=== PATIENT | male | born 1970 | race Caucasian/White ===

== ENCOUNTER 2016-12-21 10:13 | Emergency (ER) | payer OTHER ==
[~2016-12-21] VITALS: Ht 170.2 cm; Wt 163.5 kg
[2016-12-21 10:16] VITALS: Ht 170.2 cm; Wt 163.5 kg
--- NOTE | 2016-12-21 11:37 | RADRPT ---
PROCEDURE: US Lower extremity Venous. CLINICAL INDICATION: Pain and swelling TECHNIQUE: Multiple sonographic images of the left lower extremity deep venous system was obtained utilizing grayscale, color-flow, compressive sonography and doppler imaging with augmentation. The images were reviewed on a PACS workstation. COMPARISON: None. FINDINGS: There is normal compressibility and flow within the left common femoral, deep femoral, superficial f emoral and popliteal veins. Normal respiratory variation and augmentation is seen. There is normal color flow and compressibility of left posterior tibial and peroneal veins IMPRESSION: No sonographic evidence for left lower extremity deep venous thrombosis. RPTAT: HH .Alex Gayle MD, MD Date Time Electronically viewed and signed by .Alex Gayle MD, on 12/21/2016 11:36 .W/
[2016-12-21] MEDS ORDERED: SULF1TAB31 PO (11:50)
--- NOTE | 2016-12-21 11:55 | ERD ---
ER Documentation Chief Complaint Date/Time DATE: 12/21/16 TIME: 11:53 Chief Complaint SENT BY PMD FOR EVAL OF LEFT LEG SWELLING R/O DVT HPI 46-year-old diabetic male presents with left lower extremity swelling that he has had for 3 weeks. He was seen by his primary care doctor Dr. Tony zaman and was sent here to rule out DVT. He denies any recent travel, chest pain, shortness of breath, cough. No fever. No palpitations. ROS All systems reviewed and are negative except as per history of present illness. Medications Home Meds Active Scripts Sulfamethoxazole/Trimethoprim* (Bactrim Ds* Tablet) 1 Each Tablet, 1 TAB PO BID for 10 Days, TAB Prov:OLIVERIO MOYA PA-C 12/21/16 Sulfamethoxazole/Trimethoprim* (Bactrim Ds* Tablet) 1 Each Tablet, 1 TAB PO BID , #10 TAB Prov:OLIVERIO MOYA PA-C 12/21/16 Allergies Allergies: Coded Allergies: Penicillins (Verified Allergy, Unknown, 12/21/16) acetaminophen (Verified Allergy, Unknown, 12/21/16) ciprofloxacin (Verified Allergy, Unknown, 12/21/16) metronidazole (Verified Allergy, Unknown, 12/21/16) oxycodone (Verified Allergy, Unknown, 12/21/16) vancomycin (Verified Allergy, Unknown, 12/21/16) PMhx/Soc History of Surgery: Yes (LT SHOULDER , BACK , RT FOOT ALL 5 TOE AMP , LT 2ND TOE AMP ) Anesthesia Reaction: No Hx Neurological Disorder: No Hx Respiratory Disorders: No Hx Cardiac Disorders: Yes (HTN , HIGH CHOLESTEROL ) Hx Miscellaneous Medical Probl: Yes (DM ) Hx Alcohol Use: No Hx Substance Use: No Hx Tobacco Use: No Smoking Status: Never smoker FmHx Family History: diabetes Physical Exam Vitals Vital Signs Date Time Temp Pulse Resp B/P Pulse Ox O2 Delivery O2 Flow Rate FiO2 12/21/16 10:16 97.9 100 18 169/90 100 Physical Exam General: well developed, well nourished, alert, nontoxic, no distress Head: normocephalic, atraumatic Neck: Supple, nontender, no lymphadenopathy, no midline tenderness Respiratory: Clear to auscaultation bilaterally, speaks in full sentences, no use of accesory muscles or labored breathing, no rales, ronchi, or wheezing Cardiovascular: RRR, No murmurs Back: no midline tenderness, no step offs or bony abnormalities, sensation to light touch in tact Extremities: Left anterior posterior erythema and edema below the knee, with some induration behind the calf, sensation to light touch intact, ambulatory, no bony abnormality Procedures/MDM Patient has left lower extremity swelling and edema and is sent here to rule out DVT. Patient's blood pressure was elevated (>120/80) but appears stable without evidence of hypertension emergency or urgency. The patient was counseled about the risks of hypertension and urged to pursue outpatient monitoring and therapy within a week with their primary care physician. Pulse rate 100. DVT venous duplex ultrasound was negative for DVT. This is most likely therefore cellulitis and he will be treated on Bactrim. His Accu-Chek that he took at home was 218. Reviewed case with Dr. roca and he agrees with the plan. Patient was given copy of results we can follow with primary care. Recommended this patient follow up with her primary care doctor within 48 hours or return to the emergency room for any worsening of symptoms. However this time I do believe there is suitable for outpatient management. I answered all their questions and they agreed with the plan and were discharged home. Departure Diagnosis: Primary Impression: Cellulitis Condition: Stable Patient Instructions: Cellulitis Additional Instructions: Call your primary care doctor TOMORROW for an appointment during the next 1-2 days.See the doctor sooner or return here if your condition worsens before your appointment time. OLIVERIO MOYA PA-C Dec 21, 2016 11:55
== END 2016-12-21 12:11 | disposition home or self-care (01) ==
LOC: FTE 10:13
DX: L03.116 Cellulitis of left lower limb (principal); I10 Essential (primary) hypertension; E11.9 Type 2 diabetes mellitus without complications
CPT/HCPCS: 93971

== ENCOUNTER 2016-12-26 08:39 | Inpatient (IN) | payer OTHER ==
[~2016-12-26] VITALS: Ht 200.7 cm; Wt 164.4 kg
[~2016-12-26 08:39] MED LIST: SULF1TAB31 PO
[2016-12-26] MEDS ORDERED: FUROSEMIDE 40 MG INJ IV ONE (10:00)
[2016-12-26] MEDS ORDERED: IMIPENEM-CILAST 500MG IV (PMX) 100 ML IVPB ONE (10:00)
[2016-12-26 10:01] LABS: ADD SCAN DIFF NO
[2016-12-26 10:04] LABS: BASOPHILS % 0.4 % (0.0-2.0); EOSINOPHILS # 0.1 10^3/ul (0.0-0.5); EOSINOPHILS % 1.1 % (0.0-7.0); HEMOGLOBIN 13.4 g/dl (14.0-18.0); LYMPHOCYTES # 1.8 10^3/ul (0.8-2.9); MEAN CORPUSCULAR HEMOGLOBIN 26.1 pg (29.0-33.0); MEAN CORPUSCULAR HGB CONC 31.2 g/dl (32.0-37.0); MEAN CORPUSCULAR VOLUME 83.8 fl (82.0-101.0); MONOCYTE # 0.9 10^3/ul (0.3-0.9); MONOCYTES % 10.3 % (0.0-11.0); NEUTROPHIL # 5.4 10^3/ul (1.6-7.5); NEUTROPHILS % 65.6 % (39.0-77.0); PLATELET COUNT 277 10^3/UL (140-415); RED BLOOD COUNT 5.13 10^6/ul (4.70-6.10); RED CELL DISTRIBUTION WIDTH 14.3 % (11.5-14.5); WHITE BLOOD COUNT 8.3 10^3/ul (4.8-10.8)
[2016-12-26 10:09] LABS: ALBUMIN 4.5 g/dl (3.3-4.9)
[2016-12-26 10:10] LABS: POTASSIUM 4.6 mmol/L (3.5-5.1)
[2016-12-26 10:12] LABS: BILIRUBIN,INDIRECT 0.4 mg/dl (0-1.1); BILIRUBIN,TOTAL 0.4 mg/dl (0.2-1.3); CREATININE 1.1 mg/dl (0.61-1.24)
[2016-12-26 10:13] LABS: ALBUMIN/GLOBULIN RATIO 1.36; CALCIUM 9.7 mg/dl (8.4-10.2); TOTAL PROTEIN 7.8 g/dl (6.1-8.1)
--- NOTE | 2016-12-26 10:26 | ERA ---
ER Documentation Chief Complaint Date/Time DATE: 12/26/16 TIME: 10:24 Chief Complaint Complains of leg swelling with redness HPI 46-year-old man complains of continued bilateral lower extremity swelling and worsening redness to the left lower leg despite using oral antibiotics. He was recently diagnosed with left lower extremity cellulitis and diabetic foot ulcer and has been using trimethoprim sulfamethoxazole orally as an outpatient 3 days without relief. He was also recently ruled out for deep vein thrombosis in the left lower extremity. Patient denies fevers or chills, no vomiting or diarrhea, no chest pain or shortness of breath. ROS All systems reviewed and are negative except as per history of present illness. Medications Home Meds Active Scripts Sulfamethoxazole/Trimethoprim* (Bactrim Ds* Tablet) 1 Each Tablet, 1 TAB PO BID for 10 Days, TAB Prov:OLIVERIO MOYA PA-C 12/21/16 Sulfamethoxazole/Trimethoprim* (Bactrim Ds* Tablet) 1 Each Tablet, 1 TAB PO BID , #10 TAB Prov:OLIVERIO MOYA PA-C 12/21/16 Reported Medications Insulin Regular, Human (Humulin R) 100 Unit/1 Ml Vial, 8 UNIT IJ BID WITH MEALS , VIAL 12/26/16 Insulin Aspart* (Novolog Insulin Pen*) 100 Unit/Ml Soln, 45 UNIT SC AC MEALS AND BEDTIME, EA 12/26/16 Baclofen* (Baclofen*) 10 Mg Tablet, 10 MG PO Q8, TAB 12/26/16 Hydrocodone/Acetaminophen (Iselin 10-325 Tablet) 1 Each Tablet, 1 TAB PO Q6, TAB 12/26/16 Morphine Sulfate* (Ms Contin*) 30 Mg Tablet.sa, 30 MG PO Q8, TAB.SA 12/26/16 Temazepam* (Temazepam*) 30 Mg Capsule, 30 MG PO HS Y for INSOMNIA, CAP 12/26/16 Amlodipine Besylate/Benazepril (Amlodipine-Benazepril 10-20 mg) 1 Each Capsule, 1 CAP PO DAILY, CAP 12/26/16 Furosemide* (Furosemide*) 40 Mg Tablet, 40 MG PO DAILY, TAB 12/26/16 Hydralazine Hcl* (Hydralazine Hcl*) 50 Mg Tab, 50 MG PO DAILY, #60 TAB 12/26/16 Gabapentin* (Gabapentin*) 600 Mg Tablet, 600 MG PO TID, #90 TAB 12/26/16 Metformin Hcl* (Metformin Hcl*) 1,000 Mg Tablet, 1000 MG PO WITH BREAKFAST DINNE , #30 TAB 12/26/16 Simvastatin* (Zocor*) 40 Mg Tablet, 40 MG PO QHS, #30 TAB 12/26/16 Cinnamon Bark (Cinnamon) 500 Mg Capsule, 2000 MG PO DAILY, CAP 12/26/16 Allergies Allergies: Coded Allergies: Penicillins (Verified Allergy, Unknown, 12/21/16) acetaminophen (Verified Allergy, Unknown, 12/21/16) ciprofloxacin (Verified Allergy, Unknown, 12/21/16) metronidazole (Verified Allergy, Unknown, 12/21/16) oxycodone (Verified Allergy, Unknown, 12/21/16) vancomycin (Verified Allergy, Unknown, 12/21/16) PMhx/Soc Obesity, hypertension, diabetes mellitus, hypercholesterolemia, previous toe amputation of the left foot History of Surgery: Yes (LT SHOULDER , BACK , RT FOOT ALL 5 TOE AMP , LT 2ND TOE AMP ) Anesthesia Reaction: No Hx Neurological Disorder: No Hx Respiratory Disorders: No Hx Cardiac Disorders: Yes (HTN , HIGH CHOLESTEROL ) Hx Miscellaneous Medical Probl: Yes (DM ) Hx Alcohol Use: No Hx Substance Use: No Hx Tobacco Use: No FmHx Family History: No diabetes Physical Exam Vitals Vital Signs Date Time Temp Pulse Resp B/P Pulse Ox O2 Delivery O2 Flow Rate FiO2 12/26/16 08:48 97.5 95 20 133/72 95 Physical Exam GENERAL: Well-developed, well-nourished, well-hydrated, in no apparent distress , looks nontoxic in appearance HEENT: Moist mucous membranes, pink conjunctiva, no cervical spine tenderness or step-off deformities, no goiter, no jaundice or icterus, extraocular movements intact without pain. No submandibular induration, and no pharyngeal erythema NEURO: Alert and oriented 3, cranial nerves II through XII intact bilaterally, pupils equal round reactive to light, no focal deficits or facial asymmetry, sensation intact distally Strength 5/5 in upper and lower extremities bilaterally CARDIAC: Regular rate and rhythm, no murmurs rubs or gallops LUNGS: Clear bilaterally no wheezing crackles or stridor ABDOMEN: Soft nontender, no guarding, no rigidity, no rebound, no psoas sign no obturator sign. Normoactive bowel sounds SKIN: Warm and dry to touch, skin erythema and stasis dermatitis changes to the lower extremities bilaterally with erythema and skin induration to the left lower leg, no target lesions, and without ulcers EXTREMITIES: No clubbing cyanosis, 3+ pitting edema in the lower extremities bilaterally with chronic stasis dermatitis changes and a superficial ulceration the anterior left leg, calves are bilaterally symmetrical, no Homans sign, no popliteal cord sign. Distal pulses equal and bilateral PSYCH: Normal affect without agitation or irritability Result Diagram: 12/26/1645 12/26/16 0945 Results 24 hrs Laboratory Tests Test 12/26/16 09:45 White Blood Count 8.310^3/ul Red Blood Count 5.1310^6/ul Hemoglobin 13.4g/dl Hematocrit 43.0% Mean Corpuscular Volume 83.8fl Mean Corpuscular Hemoglobin 26.1pg Mean Corpuscular Hemoglobin Concent 31.2g/dl Red Cell Distribution Width 14.3% Platelet Count 66530^3/UL Mean Platelet Volume 10.0fl Neutrophils % 65.6% Lymphocytes % 22.0% Monocytes % 10.3% Eosinophils % 1.1% Basophils % 0.4% Nucleated Red Blood Cells % 0.0/100WBC Neutrophils # 5.410^3/ul Lymphocytes # 1.810^3/ul Monocytes # 0.910^3/ul Eosinophils # 0.110^3/ul Basophils # 0.010^3/ul Nucleated Red Blood Cells # 0.010^3/ul Sodium Level 142mmol/L Potassium Level 4.6mmol/L Chloride Level 103mmol/L Carbon Dioxide Level 25mmol/L Anion Gap 19 Blood Urea Nitrogen 21mg/dl Creatinine 1.10mg/dl Glucose Level 229mg/dl Calcium Level 9.7mg/dl Total Bilirubin 0.4mg/dl Direct Bilirubin 0.00mg/dl Indirect Bilirubin 0.4mg/dl Aspartate Amino Transf (AST/SGOT) 39IU/L Alanine Aminotransferase (ALT/SGPT) 58IU/L Alkaline Phosphatase 104IU/L Total Protein 7.8g/dl Albumin 4.5g/dl Globulin 3.30g/dl Albumin/Globulin Ratio 1.36 Lipase 16U/L Current Medications Medications (Trade) Dose Ordered Sig/Indira Route PRN Reason Start Time Stop Time Status Last Admin Dose Admin Furosemide 60 mg 60 mg ONCE ONCE IV 12/26/16 10:00 12/26/16 10:01 DC 12/26/16 10:21 Imipenem/ Cilastatin Sodium 100 ml @ 100 mls/hr ONCE ONCE IVPB 12/26/16 10:00 12/26/16 11:08 DC 12/26/16 12:04 Clindamycin HCl/ Dextrose (Cleocin 900 Mg/ D5W (Pmx)) 50 ml @ 50 mls/hr ONCE IVPB 12/26/16 10:30 12/26/16 11:29 DC 12/26/16 10:41 Procedures/MDM IV line was established patient was placed on cardiac/vascular sonographer rhythm strip revealed a sinus rhythm at about 80 bpm with upright P and T waves. Patient was afebrile. CBC was unremarkable, electrolytes revealed a BUN/creatinine of 21/1.1 hyperglycemia 229, liver function tests are normal, troponin was negative. Patient has been on multiple antibiotics already and has multiple antibiotic allergies, and is seems symptoms are getting worse so I treated him here with imipenem 500 mg IV and clindamycin 900 mg IV. Patient also received furosemide 60 mg IV for peripheral edema. Patient will be admitted to [facility] for continued medical management and IV antibiotics. Departure Diagnosis: Primary Impression: Cellulitis Qualified Code: L03.116 - Cellulitis of left lower extremity Additional Impressions: Diabetic foot ulcer Qualified Code: E11.621 - Diabetic ulcer of left midfoot associated with type 2 diabetes mellitus, limited to breakdown of skin Peripheral edema Stasis dermatitis of both legs Condition: JOANNA Steele MD December 26, 2016 10:26
[2016-12-26] MEDS ORDERED: CLINDAMYCIN 900 MG/D5W (PMX) 50 ML IVPB SCH (10:30)
[2016-12-26] MEDS ORDERED: INSU100V3 IJ (11:19)
[2016-12-26] MEDS ORDERED: BACL10TA PO (11:19)
[2016-12-26] MEDS ORDERED: FURO40TA4 PO (11:19)
[2016-12-26] MEDS ORDERED: SIMV40TA2 PO (11:19)
[2016-12-26] MEDS ORDERED: CINN500C9 PO (11:19)
[2016-12-26] MEDS ORDERED: TEMA30CA PO (11:19)
[2016-12-26] MEDS ORDERED: MORP30TA89 PO (11:19)
[2016-12-26] MEDS ORDERED: AMLO1CAP12 PO (11:19)
[2016-12-26] MEDS ORDERED: HYDR-902 PO (11:19)
[2016-12-26] MEDS ORDERED: HYDR-3672 PO (11:19)
[2016-12-26] MEDS ORDERED: NOVO3I SC (11:19)
[2016-12-26] MEDS ORDERED: METF1000 PO (11:19)
[2016-12-26] MEDS ORDERED: GABA-526 PO (11:19)
[2016-12-26] MEDS ORDERED: CINNAMON BARK 2000 MG PO SCH (13:30)
[2016-12-26] MEDS ORDERED: ZOLPIDEM 5 MG TAB PO PRN (13:30)
--- NOTE | 2016-12-26 13:31 | HP ---
Date/Time of Note Date/Time of Note DATE: 12/26/16 TIME: 13:06 Assessment/Plan VTE Prophylaxis VTE Prophylaxis Intervention: LMWH Assessment/Plan Assessment/Plan 1. Left lower extremity cellulitis, meropenem, keep leg elevated 2. Left foot diabetic ulcer, podiatry consult 3. DM, on insulin 4. HTN, controlled 5. Dyslipidemia, on statin 6. Diabetic neuropathy, on neurontin HPI/ROS Admit Date/Time Admit Date/Time Hx of Present Illness 46-year-old man with DM, HTN, and dyslipidemia comes in with gradually worsening left lower leg swelling, redness and left foot wound with drainage, that he was started on bactrim 3 days ago wihtout improvement. No fever or chill..Patient had history of right foot infection that he had amputation in the past. ROS Constitutional: no complaints, No chills, No diaphoresis, No disoriented, No fatigue, No febrile, No improved, No nausea, No other, No poor po, No weight change Eyes: no complaints, No discharge, No other, No pain, No redness, No visual change ENT: no complaints, No bleeding, No congestion, No discharge, No dysphagia, No other, No pain, No sore throat Respiratory: no complaints, No cough, No other, No pain, No pleuritic pain, No shortness of breath, No sputum, No wheezing Cardiovascular: no complaints, No chest pain, No edema, No lightheadedness, No orthopenea, No other, No palpitations, No paroxysmal nocturnal dyspnea Gastrointestinal: no complaints, No blood, No constipation, No decreased appetite, No diarrhea, No flatus, No nausea, No other, No pain, No passing stool, No vomiting Genitourinary: no complaints, No bleeding, No discharge, No dysuria, No flank pain, No hematuria, No other Neurologic: no complaints, No confusion, No dizziness, No focal-weakness, No headache, No other, No seizure, No syncope Endocrine: no complaints, No dry skin, No other, No polydypsia, No polyuria, No temp intolerance, No weight change PMH/Family/Social Past Medical History Medical History: diabetes, high cholesterol, hypertension Past Surgical History Past Surgical Hx: other (right foot amputation) Social History Alcohol Use: none Smoking Status: Former smoker Drug Use: none Exam/Review of Systems Vital Signs Vitals Vital Signs Date Time Temp Pulse Resp B/P Pulse Ox O2 Delivery O2 Flow Rate FiO2 12/26/16 08:48 97.5 95 20 133/72 95 Exam Constitutional: alert, oriented, well developed Psych: nl mood/affect, no complaints Head: atraumatic, normocephalic Eyes: EOMI, nl conjunctiva, nl lids ENMT: nl external ears & nose, nl lips & teeth, nl nasal mucosa & septum Neck: non-tender, supple Respiratory: clear to auscultation, normal air movement, No congested cough, No crackles/rales, No diminished breath sounds, No intercostal retraction, No labored breathing, No other, No respirations, No tactile fremitus, No wheezing Cardiovascular: nl pulses, regular rate and rhythm, No S3, No S4, No bruits, No diastolic murmur, No edema, No gallop, No irregular rhythm, No jugular venous distention (JVD), No murmurs/extra sounds, No other, No rub, No systolic murmur Gastrointestinal: nl liver, spleen, non-tender, soft, No ascites, No bowel sounds, No distended, No firm, No hepatomegaly, No mass , No other, No rebound or guarding, No splenomegaly, No surgical scars, No tender Extremities: other (left lower extremity redness, swelling with skin tears below the knee. there is a wound on left foot with some drainage) Neurological: COMPLIANCE PROGRAM MANAGER II-XII intact, nl mental status, nl speech, nl strength Skin: nl turgor Lymph: nl lymph nodes Labs Result Diagram: 12/26/16 0945 12/26/16 0945 CRUZ THOMAS MD December 26, 2016 13:17
[2016-12-26] MEDS: MEROPENEM 1 GM/100 ML (PMX) 100 ML IVPB SCH ×2 (14:00→23:34)
[2016-12-26] MEDS ORDERED: GLUCOSE GEL 15 GRAM TUBE PO PRN ×2 (14:00)
[2016-12-26] MEDS ORDERED: GLUCAGON 1 MG INJ IM PRN (14:00)
[2016-12-26] MEDS: AMLODIPINE 10 MG TAB PO SCH (14:00)
[2016-12-26] MEDS: BENAZEPRIL 20 MG TAB PO SCH (14:00)
[2016-12-26] MEDS: morphine (ER) 30 MG TAB PO SCH ×2 (14:00→23:33)
[2016-12-26] MEDS: FUROSEMIDE 40 MG TAB PO SCH (14:00)
[2016-12-26] MEDS ORDERED: DEXTROSE 50% 50 ML SYRINGE IV PRN ×2 (14:00)
[2016-12-26] MEDS ORDERED: GLUCOSE GEL 15 GRAM TUBE BUCCAL PRN (14:00)
[2016-12-26] MEDS: HYDROCODONE/APAP (10/325) TAB PO SCH ×2 (15:42→22:13)
[2016-12-26] MEDS: BACLOFEN 10 MG TAB PO SCH ×2 (16:53→23:33)
[2016-12-26] MEDS ORDERED: INSULIN ASPART [NOVOLOG] 3 ML PEN SC SCH (17:30)
[2016-12-26] MEDS: ENOXAPARIN 40 MG/0.4 ML SYG SC SCH (17:38)
[2016-12-26 18:00] VITALS: Ht 200.7 cm; Wt 164.4 kg
[2016-12-26 19:13] VITALS: TEMP 98.6
[2016-12-26 20:25] VITALS: BP 141/73; RESP 18
[2016-12-26] MEDS ORDERED: INSULIN GLARGINE [LANtus] 3 ML PEN SC SCH (21:00)
[2016-12-26] MEDS: metFORMIN 500 MG TAB PO SCH (22:13)
[2016-12-26] MEDS: GABAPENTIN 300 MG CAP PO SCH (22:13)
[2016-12-26] MEDS: ATORVASTATIN 20 MG TAB PO SCH (22:13)
[2016-12-26] MEDS: INSULIN ASPART [NOVOLOG] 3 ML PEN SC SCH (22:24)
[2016-12-27] MEDS: HYDROCODONE/APAP (10/325) TAB PO SCH ×5 (01:37→23:50)
[2016-12-27] MEDS: BACLOFEN 10 MG TAB PO SCH ×3 (05:56→21:51)
[2016-12-27] MEDS: morphine (ER) 30 MG TAB PO SCH ×3 (05:56→21:51)
[2016-12-27 07:58] VITALS: BP 117/68; RESP 16
[2016-12-27] MEDS: MEROPENEM 1 GM/100 ML (PMX) 100 ML IVPB SCH ×3 (08:12→21:51)
[2016-12-27] MEDS: GABAPENTIN 300 MG CAP PO SCH ×3 (08:35→21:08)
[2016-12-27] MEDS: BENAZEPRIL 20 MG TAB PO SCH (08:36)
[2016-12-27] MEDS: metFORMIN 500 MG TAB PO SCH ×2 (08:36→17:16)
[2016-12-27] MEDS: AMLODIPINE 10 MG TAB PO SCH (08:36)
[2016-12-27] MEDS: FUROSEMIDE 40 MG TAB PO SCH (08:37)
[2016-12-27] MEDS: ENOXAPARIN 40 MG/0.4 ML SYG SC SCH (08:39)
[2016-12-27] MEDS: INSULIN ASPART [NOVOLOG] 3 ML PEN SC SCH ×5 (08:40→21:16)
--- NOTE | 2016-12-27 14:17 | PN ---
Date/Time of Note Date/Time of Note DATE: 12/27/16 TIME: 14:15 Assessment/Plan VTE Prophylaxis VTE Prophylaxis Intervention: LMWH Lines/Catheters IV Catheter Type (from Nrsg): Saline Lock Assessment/Plan Assessment/Plan 1. Left lower extremity cellulitis, meropenem, keep leg elevated 2. Left foot diabetic ulcer, podiatry consult Dr. Romero 3. DM, on insulin 4. HTN, controlled 5. Dyslipidemia, on statin 6. Diabetic neuropathy, on neurontin Subjective 24 Hr Interval Summary Free Text/Dictation afebrile Exam/Review of Systems Vital Signs Vitals Vital Signs Date Time Temp Pulse Resp B/P Pulse Ox O2 Delivery O2 Flow Rate FiO2 12/27/16 07:58 98.2 78 16 117/68 99 12/26/16 19:13 Room Air Intake and Output 12/26/16 12/26/16 12/27/16 15:00 23:00 07:00 Intake Total 450 ml Output Total 850 ml 150 ml Balance -850 ml 300 ml Exam Constitutional: alert, oriented, well developed Psych: nl mood/affect, no complaints Head: atraumatic, normocephalic Eyes: EOMI, nl conjunctiva, nl lids ENMT: nl external ears & nose, nl lips & teeth, nl nasal mucosa & septum Neck: non-tender, supple Respiratory: clear to auscultation, normal air movement, No congested cough, No crackles/rales, No diminished breath sounds, No intercostal retraction, No labored breathing, No other, No respirations, No tactile fremitus, No wheezing Cardiovascular: nl pulses, regular rate and rhythm, No S3, No S4, No bruits, No diastolic murmur, No edema, No gallop, No irregular rhythm, No jugular venous distention (JVD), No murmurs/extra sounds, No other, No rub, No systolic murmur Gastrointestinal: nl liver, spleen, non-tender, soft, No ascites, No bowel sounds, No distended, No firm, No hepatomegaly, No mass , No other, No rebound or guarding, No splenomegaly, No surgical scars, No tender Musculoskeletal: nl extremities to inspection Extremities: edema, normal pulses, other, pitting pedal edema (left lower extremity redness/swelling and tenderness with an left foot ulcer), No calf tenderness, No clubbing, No cyanosis, No palpable cord Neurological: EGYPTOLOGIST II-XII intact, nl mental status, nl speech, nl strength Results Result Diagram: 12/26/1645 12/26/16 0945 Results 24 hrs Laboratory Tests Test 12/26/16 17:21 12/26/16 22:16 12/27/16 01:38 12/27/16 08:12 Bedside Glucose 279 H 295 H 298 H 229 H Test 12/27/16 12:21 Bedside Glucose 245 H Medications Medications Current Medications Meropenem (Merrem 1 Gm/100 ml (Pmx)) 100 ml @ 200 mls/hr Q8 IVPB Last administered on 12/27/16 08:12; Admin Dose 200 MLS/HR; Start 12/26/16 at 14:00 Baclofen (Lioresal) 10 mg Q8 PO Last administered on 12/27/16 13:10; Admin Dose 10 MG; Start 12/26/16 at 14:00 Furosemide (Lasix) 40 mg DAILY PO Last administered on 12/27/16 08:37; Admin Dose 40 MG; Start 12/26/16 at 14:00 Gabapentin (Neurontin) 600 mg TID PO Last administered on 12/27/16 13:10; Admin Dose 600 MG; Start 12/26/16 at 21:00 Hydralazine HCl (Apresoline) 50 mg DAILY PO Last administered on 12/27/16 08:36 ; Admin Dose 50 MG; Start 12/26/16 at 14:00 Acetaminophen/ Hydrocodone Bitart ([place] (10/325)) 1 tab Q6 PO Last administered on 12/27/16 13:10; Admin Dose 1 TAB; Start 12/26/16 at 13:30 Morphine Sulfate (Ms Contin (Er)) 30 mg Q8 PO Last administered on 12/27/16 05: 56; Admin Dose 30 MG; Start 12/26/16 at 14:00 Amlodipine Besylate (Norvasc) 10 mg DAILY PO Last administered on 12/27/16 08: 36; Admin Dose 10 MG; Start 12/26/16 at 14:00 Atorvastatin Calcium (Lipitor) 20 mg QHS PO Last administered on 12/26/16 22:13 ; Admin Dose 20 MG; Start 12/26/16 at 21:00 Enoxaparin Sodium (Lovenox) 40 mg DAILY SC Last administered on 12/27/16 08:39 ; Admin Dose 40 MG; Start 12/26/16 at 14:00 Miscellaneous Information 1 ea NOTE XX ; Start 12/26/16 at 14:00 Glucose (Glutose) 15 gm Q15M PRN PO DECREASED GLUCOSE; Start 12/26/16 at 14:00 Glucose (Glutose) 22.5 gm Q15M PRN PO DECREASED GLUCOSE; Start 12/26/16 at 14:00 Dextrose (D50w Syringe) 25 ml Q15M PRN IV DECREASED GLUCOSE; Start 12/26/16 at 14:00 Dextrose (D50w Syringe) 50 ml Q15M PRN IV DECREASED GLUCOSE; Start 12/26/16 at 14:00 Glucagon (Glucagen) 1 mg Q15M PRN IM DECREASED GLUCOSE; Start 12/26/16 at 14:00 Glucose (Glutose) 15 gm Q15M PRN BUCCAL DECREASED GLUCOSE; Start 12/26/16 at 14: 00 Benazepril HCl (Lotensin) 20 mg DAILY PO Last administered on 12/27/16 08:36; Admin Dose 20 MG; Start 12/26/16 at 14:00 Insulin Glargine (Lantus) 45 unit HS SC Last administered on 12/26/16 22:19; Admin Dose 45 UNIT; Start 12/26/16 at 21:00 Ondansetron HCl (Zofran Inj) 4 mg Q4H PRN IV NAUSEA AND/OR VOMITING; Start 12/27 at 13:30 Diagnostic Test (Pha) (Accu-Chek) 1 ea 02 XX ; Start 12/28/16 at 02:00 CRUZ THOMAS MD December 27, 2016 14:17
[2016-12-27] MEDS: ONDANSETRON 4 MG INJ IV PRN ×2 (14:34→21:06)
--- NOTE | 2016-12-27 19:27 | RADRPT ---
PROCEDURE: MR Foot. CLINICAL INDICATION: Soft tissue defect at the left forefoot with cellulitis. TECHNIQUE: Noncontrast MRI of the left forefoot, with axial, sagittal and coronal images. T1-weig hted and STIR sequences were employed. COMPARISON: Plain film examination of the left foot. FINDINGS: Amputation of the second ray at the distal second metaphysis. There is soft tissue swelling over the dorsum of the forefoot. There is a soft tissue defect at the plantar aspect of the forefoot in the region of the head of the third metatarsal. No abnormal T1-we ighted or fluid-sensitive STIR signal is seen to suggest osteomyelitis. No acute fracture, dislocation or marrow replacement process. Increased fluid signal within the interosseous musculature of the forefoot can be seen in associatio n with early neuropathic changes. IMPRESSION: 1. Soft tissue ulceration of the left forefoot near the head of the third metatarsal. 2. No evident abnormal signal to suggest osteomyelitis. 3. Soft tissue swelling over the dorsum of the forefoot. 4. Increased fluid signal within the interosseous musculature of the forefoot can be seen in associ ation with early neuropathic changes. RPTAT: [facility] Physician Annabel Date Time Electronically viewed and signed by Physician Annabel on 12/27/2016 19:27 RS/
[2016-12-27 19:37] VITALS: BP 129/79; RESP 20
[2016-12-27] MEDS: ATORVASTATIN 20 MG TAB PO SCH (21:09)
[2016-12-27] MEDS: INSULIN GLARGINE [LANtus] 3 ML PEN SC SCH (21:15)
[2016-12-28] MEDS: ACCU-CHEK XX SCH (02:00)
[2016-12-28] MEDS: MEROPENEM 1 GM/100 ML (PMX) 100 ML IVPB SCH ×3 (05:51→21:41)
[2016-12-28] MEDS: HYDROCODONE/APAP (10/325) TAB PO SCH ×3 (05:52→17:07)
[2016-12-28] MEDS: morphine (ER) 30 MG TAB PO SCH ×3 (05:52→21:40)
[2016-12-28] MEDS: BACLOFEN 10 MG TAB PO SCH ×3 (05:52→21:40)
[2016-12-28 06:25] LABS: POTASSIUM 4.6 mmol/L (3.5-5.1)
[2016-12-28 06:28] LABS: CREATININE 0.91 mg/dl (0.61-1.24)
[2016-12-28 06:29] LABS: CALCIUM 9.2 mg/dl (8.4-10.2)
[2016-12-28 06:42] LABS: ADD SCAN DIFF NO
[2016-12-28 06:47] LABS: BASOPHILS % 0.4 % (0.0-2.0); EOSINOPHILS # 0.2 10^3/ul (0.0-0.5); EOSINOPHILS % 2.3 % (0.0-7.0); HEMATOCRIT 37.8 % (42.0-52.0); HEMOGLOBIN 12.3 g/dl (14.0-18.0); LYMPHOCYTES # 2.6 10^3/ul (0.8-2.9); LYMPHOCYTES % 35.9 % (15.0-51.0); MEAN CORPUSCULAR HEMOGLOBIN 27.2 pg (29.0-33.0); MEAN CORPUSCULAR HGB CONC 32.5 g/dl (32.0-37.0); MEAN CORPUSCULAR VOLUME 83.4 fl (82.0-101.0); MEAN PLATELET VOLUME 10.4 fl (7.4-10.4); MONOCYTE # 0.8 10^3/ul (0.3-0.9); MONOCYTES % 11.5 % (0.0-11.0); NEUTROPHIL # 3.6 10^3/ul (1.6-7.5); NEUTROPHILS % 49.2 % (39.0-77.0); PLATELET COUNT 257 10^3/UL (140-415); RED BLOOD COUNT 4.53 10^6/ul (4.70-6.10); RED CELL DISTRIBUTION WIDTH 13.7 % (11.5-14.5); WHITE BLOOD COUNT 7.3 10^3/ul (4.8-10.8)
[2016-12-28] MEDS: GABAPENTIN 300 MG CAP PO SCH ×3 (08:12→20:21)
[2016-12-28] MEDS: metFORMIN 500 MG TAB PO SCH ×2 (08:12→17:06)
[2016-12-28] MEDS: INSULIN ASPART [NOVOLOG] 3 ML PEN SC SCH ×7 (08:18→20:24)
[2016-12-28] MEDS: ENOXAPARIN 40 MG/0.4 ML SYG SC SCH (08:20)
[2016-12-28] MEDS: FUROSEMIDE 40 MG TAB PO SCH (08:24)
[2016-12-28] MEDS: BENAZEPRIL 20 MG TAB PO SCH (08:24)
[2016-12-28 08:25] VITALS: BP_SYST 76; PULSE 84
[2016-12-28] MEDS: AMLODIPINE 10 MG TAB PO SCH (08:25)
[2016-12-28] MEDS: ONDANSETRON 4 MG INJ IV PRN ×3 (09:39→22:43)
--- NOTE | 2016-12-28 10:39 | PN ---
Date/Time of Note Date/Time of Note DATE: 12/28/16 TIME: 10:33 Assessment/Plan VTE Prophylaxis VTE Prophylaxis Intervention: LMWH, SCD's Lines/Catheters IV Catheter Type (from Nrsg): Saline Lock Urinary Cath still in place: No Assessment/Plan Assessment/Plan 1. Left lower extremity cellulitis, IV abx meropenem, keep leg elevated 2. Left foot diabetic ulcer, podiatry consult Dr. Romero 3. DM, on insulin 4. HTN, controlled 5. Dyslipidemia, on statin 6. Diabetic neuropathy, on neurontin lovenox for DVT prophylaxis Talked with Podiatry to evaluate patient Subjective 24 Hr Interval Summary Free Text/Dictation doing ok, still c/o leg pain, Awaiting podiatry evaluation Exam/Review of Systems Vital Signs Vitals Vital Signs Date Time Temp Pulse Resp B/P Pulse Ox O2 Delivery O2 Flow Rate FiO2 12/28/16 08:25 98.1 84 76/ 94 Room Air 12/27/16 19:37 20 Intake and Output 12/27/16 12/27/16 12/28/16 15:00 23:00 07:00 Intake Total 100 ml 1870 ml 850 ml Balance 100 ml 1870 ml 850 ml Exam Constitutional: alert, oriented, well developed ENMT: nl external ears & nose, nl lips & teeth, nl nasal mucosa & septum Neck: non-tender, supple Respiratory: clear to auscultation, normal air movement, Cardiovascular: nl pulses, regular rate and rhythm, Gastrointestinal: nl liver, spleen, non-tender, soft, Musculoskeletal: nl extremities to inspection Extremities: edema, normal pulses, other, pitting pedal edema (left lower extremity redness/swelling and tenderness with an left foot ulcer), No calf tenderness, No clubbing, No cyanosis, No palpable cord Results Result Diagram: 12/28/16 0529 12/28/16 0524 Results 24 hrs Laboratory Tests Test 12/27/16 12:21 12/27/16 17:14 12/27/16 21:11 12/28/16 01:57 Bedside Glucose 245 H 252 H 264 H 196 Test 12/28/16 05:24 12/28/16 05:29 12/28/16 08:04 Sodium Level 137 Potassium Level 4.6 Chloride Level 102 Carbon Dioxide Level 25 Anion Gap 15 Blood Urea Nitrogen 23 H Creatinine 0.91 Glucose Level 209 Calcium Level 9.2 C-Reactive Protein 1.0 H White Blood Count 7.3 Red Blood Count 4.53 L Hemoglobin 12.3 L Hematocrit 37.8 L Mean Corpuscular Volume 83.4 Mean Corpuscular Hemoglobin 27.2 L Mean Corpuscular Hemoglobin Concent 32.5 Red Cell Distribution Width 13.7 Platelet Count 257 Mean Platelet Volume 10.4 Neutrophils % 49.2 Lymphocytes % 35.9 Monocytes % 11.5 H Eosinophils % 2.3 Basophils % 0.4 Nucleated Red Blood Cells % 0.0 Neutrophils # 3.6 Lymphocytes # 2.6 Monocytes # 0.8 Eosinophils # 0.2 Basophils # 0.0 Nucleated Red Blood Cells # 0.0 Erythrocyte Sedimentation Rate 2 Bedside Glucose 179 Medications Medications Current Medications Meropenem (Merrem 1 Gm/100 ml (Pmx)) 100 ml @ 200 mls/hr Q8 IVPB Last administered on 12/28/16 05:51; Admin Dose 200 MLS/HR; Start 12/26/16 at 14:00 Baclofen (Lioresal) 10 mg Q8 PO Last administered on 12/28/16 05:52; Admin Dose 10 MG; Start 12/26/16 at 14:00 Furosemide (Lasix) 40 mg DAILY PO Last administered on 12/28/16 08:24; Admin Dose 40 MG; Start 12/26/16 at 14:00 Gabapentin (Neurontin) 600 mg TID PO Last administered on 12/28/16 08:12; Admin Dose 600 MG; Start 12/26/16 at 21:00 Hydralazine HCl (Apresoline) 50 mg DAILY PO Last administered on 12/28/16 08:25 ; Admin Dose 50 MG; Start 12/26/16 at 14:00 Acetaminophen/ Hydrocodone Bitart ([place] (10/325)) 1 tab Q6 PO Last administered on 12/28/16 05:52; Admin Dose 1 TAB; Start 12/26/16 at 13:30 Morphine Sulfate (Ms Contin (Er)) 30 mg Q8 PO Last administered on 12/28/16 05: 52; Admin Dose 30 MG; Start 12/26/16 at 14:00 Amlodipine Besylate (Norvasc) 10 mg DAILY PO Last administered on 12/28/16 08: 25; Admin Dose 10 MG; Start 12/26/16 at 14:00 Atorvastatin Calcium (Lipitor) 20 mg QHS PO Last administered on 12/27/16 21:09 ; Admin Dose 20 MG; Start 12/26/16 at 21:00 Enoxaparin Sodium (Lovenox) 40 mg DAILY SC Last administered on 12/28/16 08:20 ; Admin Dose 40 MG; Start 12/26/16 at 14:00 Miscellaneous Information 1 ea NOTE XX ; Start 12/26/16 at 14:00 Glucose (Glutose) 15 gm Q15M PRN PO DECREASED GLUCOSE; Start 12/26/16 at 14:00 Glucose (Glutose) 22.5 gm Q15M PRN PO DECREASED GLUCOSE; Start 12/26/16 at 14:00 Dextrose (D50w Syringe) 25 ml Q15M PRN IV DECREASED GLUCOSE; Start 12/26/16 at 14:00 Dextrose (D50w Syringe) 50 ml Q15M PRN IV DECREASED GLUCOSE; Start 12/26/16 at 14:00 Glucagon (Glucagen) 1 mg Q15M PRN IM DECREASED GLUCOSE; Start 12/26/16 at 14:00 Glucose (Glutose) 15 gm Q15M PRN BUCCAL DECREASED GLUCOSE; Start 12/26/16 at 14: 00 Benazepril HCl (Lotensin) 20 mg DAILY PO Last administered on 12/28/16 08:24; Admin Dose 20 MG; Start 12/26/16 at 14:00 Ondansetron HCl (Zofran Inj) 4 mg Q4H PRN IV NAUSEA AND/OR VOMITING Last administered on 12/28/16 09:39; Admin Dose 4 MG; Start 12/27/16 at 13:30 Diagnostic Test (Pha) (Accu-Chek) 1 ea 02 XX ; Start 12/28/16 at 02:00 Insulin Glargine (Lantus) 50 unit HS SC Last administered on 12/27/16 21:15; Admin Dose 50 UNIT; Start 12/27/16 at 21:00 CECILIA MAYNARD MD December 28, 2016 10:39
--- NOTE | 2016-12-28 13:57 | RADRPT ---
PROCEDURE: XR Foot. CLINICAL INDICATION: Ulcer.. TECHNIQUE: Left foot x-rays, three views. COMPARISON: None. FINDINGS: Bony mineralization appears normal. Amputation of the second digit and distal aspect of the second metatarsal is present. Bony margins are distinct. There is no evidence of osseous erosion. Joint spaces are intact. There is no evidence of soft tissue air. Mild diffuse soft tissue prominence of the forefoot is observed. IMPRESSION: No evidence of osseous erosion. Amputation of the second digit and distal aspect of the second metatarsal. Mild diffuse prominence of the soft tissues of the forefoot. No evidence of soft tissue air. RPTAT: [facility] .Shruthi Andre MD, MD Date Time Electronically viewed and signed by .Shruthi Andre MD, on 12/28/2016 13:57 .T/
[2016-12-28] MEDS: ATORVASTATIN 20 MG TAB PO SCH (20:21)
[2016-12-28] MEDS: INSULIN GLARGINE [LANtus] 3 ML PEN SC SCH (20:25)
[2016-12-28 20:27] VITALS: BP 146/83; RESP 16
[2016-12-29] MEDS: HYDROCODONE/APAP (10/325) TAB PO SCH ×3 (00:08→12:00)
[2016-12-29] MEDS: ACCU-CHEK XX SCH (01:53)
[2016-12-29] MEDS: BACLOFEN 10 MG TAB PO SCH ×2 (05:48→13:30)
[2016-12-29] MEDS: MEROPENEM 1 GM/100 ML (PMX) 100 ML IVPB SCH ×2 (05:48→13:30)
[2016-12-29] MEDS: morphine (ER) 30 MG TAB PO SCH ×2 (05:51→13:30)
[2016-12-29] MEDS: INSULIN ASPART [NOVOLOG] 3 ML PEN SC SCH ×4 (08:00→11:52)
[2016-12-29 08:06] VITALS: BP 119/64; PULSE 69; RESP 16
[2016-12-29] MEDS: metFORMIN 500 MG TAB PO SCH (08:25)
[2016-12-29] MEDS: FUROSEMIDE 40 MG TAB PO SCH (08:26)
[2016-12-29] MEDS: BENAZEPRIL 20 MG TAB PO SCH (08:26)
[2016-12-29] MEDS: AMLODIPINE 10 MG TAB PO SCH (08:26)
[2016-12-29] MEDS: GABAPENTIN 300 MG CAP PO SCH ×2 (08:27→12:07)
[2016-12-29] MEDS: ENOXAPARIN 40 MG/0.4 ML SYG SC SCH (08:28)
--- NOTE | 2016-12-29 10:38 | CONS ---
DATE OF ADMISSION: 12/26/2016 DATE OF CONSULTATION: 12/26/2016 FOOT AND ANKLE SURGERY CONSULTATION Thank you very much for involving me in the care of this patient. As you very well know, this is a 46-year-old male patient with multiple medical problems, including diabetes mellitus, hypertension, dyslipidemia, and morbid obesity, who comes to the emergency room with gradually worsening left lowe r leg swelling, redness and a small open wound with some drainage. The patient apparently was start ed on Bactrim 3 days ago and he was not getting any improvement. He reports that he has had a histo ry of right foot infection and he had amputations in the past. He says that his left foot has becom e swollen and he has an open wound that he did not notice. He denies any pain in the left foot. I was consulted for evaluation and treatment. PAST MEDICAL HISTORY: As per HPI. REVIEW OF SYSTEMS: A 12-point review of systems was done and the pertinent information is in the his tory of present illness. PAST SURGICAL HISTORY: As per HPI. SOCIAL HISTORY: Denies alcohol use. Denies drug use. He is a former smoker. PHYSICAL EXAMINATION: The patient is morbidly obese, in no acute distress. A left foot ulcer prese nt, plantar distal aspect, with no pus or bleeding. There is edema of the left foot, erythema of th e left foot. There is discoloration of the skin. Left lower extremity cellulitis present, with a nielsen perficial blister-like opening with serosanguineous drainage. The area is nontender to palpation. Palpable pulses noted bilaterally. Sensation is decreased to sharp, dull, vibratory, and temperatur e stimuli. LABORATORY: White blood count is 8.3, hemoglobin 13.4, hematocrit 43, platelets 277. X-ray and MRI are not available as of 12/26/2016. ASSESSMENT: 1. Open wound, left foot. 2. Cellulitis, left lower extremity. 3. Morbid obesity. 4. Diabetes mellitus. 5. Peripheral neuropathy. 6. Peripheral vascular disease. PLAN: MRI and x-ray will be ordered for a full evaluation of the left foot. The patient may requir e surgical management, pending abnormal findings on the MRI. If the MRI is negative for osteomyelit is, the patient will require daily dressing changes and IV antibiotics for the left leg cellulitis. I will follow the patient up in-house. Thank you very much for the consultation. Dictated By: JIM MEDINA Conf#: [id number] DID#: [id number]
--- NOTE | 2016-12-29 11:24 | PN ---
Date/Time of Note Date/Time of Note DATE: 12/29/16 TIME: 11:23 Assessment/Plan VTE Prophylaxis VTE Prophylaxis Intervention: SCD's Lines/Catheters IV Catheter Type (from Nrsg): Saline Lock Urinary Cath still in place: No Assessment/Plan Chief Complaint/Hosp Course 1. Left lower extremity cellulitis, IV abx meropenem, keep leg elevated 2. Left foot diabetic ulcer, podiatry consult Dr. Romero 3. DM, on insulin 4. HTN, controlled 5. Dyslipidemia, on statin 6. Diabetic neuropathy, on neurontin lovenox for DVT prophylaxis Talked with Podiatry to evaluate patient Problems: Subjective 24 Hr Interval Summary Free Text/Dictation doing better, LLE wound dressing on Exam/Review of Systems Vital Signs Vitals Vital Signs Date Time Temp Pulse Resp B/P Pulse Ox O2 Delivery O2 Flow Rate FiO2 12/29/16 08:06 98.1 69 16 119/64 97 12/28/16 08:25 Room Air Intake and Output 12/28/16 12/28/16 12/29/16 15:00 23:00 07:00 Intake Total 100 ml 1120 ml 780 ml Balance 100 ml 1120 ml 780 ml Exam Constitutional: alert, oriented, well developed ENMT: nl external ears & nose, nl lips & teeth, nl nasal mucosa & septum Neck: non-tender, supple Respiratory: clear to auscultation, normal air movement, Cardiovascular: nl pulses, regular rate and rhythm, Gastrointestinal: nl liver, spleen, non-tender, soft, Musculoskeletal: nl extremities to inspection Extremities: edema, normal pulses, other, pitting pedal edema (left lower extremity redness/swelling and tenderness with an left foot ulcer), No calf tenderness, No clubbing, No cyanosis, No palpable cord Results Result Diagram: 12/28/16 0529 12/28/16 0524 Results 24 hrs Laboratory Tests Test 12/28/16 11:55 12/28/16 16:52 12/28/16 20:20 12/29/16 01:47 Bedside Glucose 180 226 H 195 192 Test 12/29/16 08:08 Bedside Glucose 140 Medications Medications Current Medications Meropenem (Merrem 1 Gm/100 ml (Pmx)) 100 ml @ 200 mls/hr Q8 IVPB Last administered on 12/29/16t 05:48; Admin Dose 200 MLS/HR; Start 12/26/16 at 14:00 Baclofen (Lioresal) 10 mg Q8 PO Last administered on 12/29/16 05:48; Admin Dose 10 MG; Start 12/26/16 at 14:00 Furosemide (Lasix) 40 mg DAILY PO Last administered on 12/29/16 08:26; Admin Dose 40 MG; Start 12/26/16 at 14:00 Gabapentin (Neurontin) 600 mg TID PO Last administered on 12/29/16 08:27; Admin Dose 600 MG; Start 12/26/16 at 21:00 Hydralazine HCl (Apresoline) 50 mg DAILY PO Last administered on 12/28/16 08:25 ; Admin Dose 50 MG; Start 12/26/16 at 14:00 Acetaminophen/ Hydrocodone Bitart ([place] (10/325)) 1 tab Q6 PO Last administered on 12/29/16 00:08; Admin Dose 1 TAB; Start 12/26/16 at 13:30 Morphine Sulfate (Ms Contin (Er)) 30 mg Q8 PO Last administered on 12/29/16 05: 51; Admin Dose 30 MG; Start 12/26/16 at 14:00 Amlodipine Besylate (Norvasc) 10 mg DAILY PO Last administered on 12/29/16 08: 26; Admin Dose 10 MG; Start 12/26/16 at 14:00 Atorvastatin Calcium (Lipitor) 20 mg QHS PO Last administered on 12/28/16 20:21 ; Admin Dose 20 MG; Start 12/26/16 at 21:00 Enoxaparin Sodium (Lovenox) 40 mg DAILY SC Last administered on 12/29/16 08:28 ; Admin Dose 40 MG; Start 12/26/16 at 14:00 Miscellaneous Information 1 ea NOTE XX ; Start 12/26/16 at 14:00 Glucose (Glutose) 15 gm Q15M PRN PO DECREASED GLUCOSE; Start 12/26/16 at 14:00 Glucose (Glutose) 22.5 gm Q15M PRN PO DECREASED GLUCOSE; Start 12/26/16 at 14:00 Dextrose (D50w Syringe) 25 ml Q15M PRN IV DECREASED GLUCOSE; Start 12/26/16 at 14:00 Dextrose (D50w Syringe) 50 ml Q15M PRN IV DECREASED GLUCOSE; Start 12/26/16 at 14:00 Glucagon (Glucagen) 1 mg Q15M PRN IM DECREASED GLUCOSE; Start 12/26/16 at 14:00 Glucose (Glutose) 15 gm Q15M PRN BUCCAL DECREASED GLUCOSE; Start 12/26/16 at 14: 00 Benazepril HCl (Lotensin) 20 mg DAILY PO Last administered on 12/29/16 08:26; Admin Dose 20 MG; Start 12/26/16 at 14:00 Ondansetron HCl (Zofran Inj) 4 mg Q4H PRN IV NAUSEA AND/OR VOMITING Last administered on 12/28/16 22:43; Admin Dose 4 MG; Start 12/27/16 at 13:30 Diagnostic Test (Pha) (Accu-Chek) 1 ea 02 XX Last administered on 12/29/16 01: 53; Admin Dose 1 EA; Start 12/28/16 at 02:00 Insulin Glargine (Lantus) 50 unit HS SC Last administered on 12/28/16 20:25; Admin Dose 50 UNIT; Start 12/27/16 at 21:00 CECILIA MAYNARD MD December 29, 2016 11:24
--- NOTE | 2016-12-29 11:27 | PDOCDIS ---
Discharge Instructions CONDITION Patient Condition: Good HOME CARE INSTRUCTIONS: Special Diet: 1800 ADA ACTIVITY: Activity Restrictions: Slowly Increase Activity Rest between Activity Avoid heavy lifting Avoid Heavy Housework FOLLOW UP/APPOINTMENTS Appointments follow up with his own PMD through HMO insurance in 1-2 week. Follow up with his own Podiatry in next 1-2 days ( pt said he will schedule appt tomorrow)., His MRI brain negative for Osteomyelitis CECILIA MAYNARD MD December 29, 2016 11:27
[2016-12-29] MEDS ORDERED: SULF1TAB31 PO (11:28)
--- NOTE | 2016-12-29 11:41 | PN ---
DATE: 12/28/2016 SUBJECTIVE: The patient was seen at bedside. He is in no acute distress. He reports no chest pain , shortness of breath, fever, chills, nausea or vomiting. The patient has had an MRI of his right f oot. Denies any other issues. REVIEW OF SYSTEMS: The patient denies fever, chills, nausea, vomiting, otherwise unremarkable. PHYSICAL EXAMINATION: Morbidly obese male in no acute distress. Left foot open wound present. Odilia lulitis is improving. The wound continues. MRI shows no evidence of osteomyelitis or drainable abs cess in the MRI. Dorsalis pedis and posterior tibial pulses palpable. Sensation is decreased. ASSESSMENT: 1. Open wound, left foot. 2. Edema, left lower extremity. 3. Cellulitis, resolving left lower leg. 4. Blister, left leg. 5. Diabetes. 6. Peripheral neuropathy. 7. Peripheral vascular disease. PLAN: No surgery is planned for this patient at this time. There is no drainable abscess on the MR I and there is no osteomyelitis evident on the MRI. Daily dressing change with wound care to be don e. The patient may be discharged with wound care to be done at home either by patient or visiting roz goodwin. Santyl ointment is to be applied to the wound. The [facility]. Prior authorization may be necessary. Dictated By: JIM FIGUEROA/ANASTASIYA Conf#: [id number] DID#: [id number]
--- NOTE | 2016-12-31 22:12 | DS ---
DATE OF ADMISSION: 12/26/2016 DATE OF DISCHARGE: 12/29/2016 FINAL DISCHARGE DIAGNOSES: 1. Left lower-extremity cellulitis. 2. Left foot diabetic ulcer, status post podiatry consultation. 3. Diabetes mellitus, insulin-dependent. 4. History of hypertension. 5. History of dyslipidemia. 6. Lower-extremity diabetic neuropathy, on Neurontin. CONSULTATIONS DONE DURING THIS HOSPITALIZATION: Podiatry consultation by Dr. Mak Romero. HOSPITAL COURSE: This is a 46-year-old male with a past medical history of hypertension, diabetes mellitus, with lower-extremity diabetic neuropathy, hyperlipidemia, morbid obesity, history of previous left shoulder and back surgery. The patient had a previous right foot/all 5 toes amputation. He presented with left lower-extremity cellulitis and left foot diabetic ulcers. The patient was recently seen in the emergency room approximately 1-2 weeks before, for similar complaints, and he was prescribed p.o. antibiotics upon discharge. He was supposed to be followed up with podiatry as outpatient, and he had a scheduled appointment with podiatry in 1-2 days after this admission. The patient is noted to have left lower-extremity cellulitis. He was started on IV antibiotics, meropenem. The patient was recommended to have leg elevations, that he was doing, but it was not improving, so he had a podiatry evaluation done by Dr. Mak Romero, who recommended to get the MRI of the foot. The patient had MRI of his left foot done that was negative for any acute osteomyelitis. It had small soft tissue swelling with edema. The patient was recommended to have antibiotics and wound care. Upon discharge, he was recommended to have Santyl ointment applications upon discharge, and the patient stated that he had a followup appointment his podiatry 1 day after the discharge, so he was recommended to follow up with podiatry as outpatient. He has been given prescriptions of Bactrim-DS 1 tablet p.o. b.i.d. x10 days upon discharge. He is also recommended to follow up with his primary care doctor, and will be followed up by podiatry as outpatient. DISPOSITION: To home. DISCHARGE CONDITION: Stable and improved compared to admission. DISCHARGE ACTIVITIES: As tolerated, slowly resume to the normal baseline activity. DISCHARGE DIET: ADA 1800-kilocalorie low-fat, low-sodium diet. DISCHARGE MEDICATIONS: He is given new prescriptions of Bactrim-DS 1 tablet p.o. b.i.d. x7 days upon discharge. He is continued on his home medications of amlodipine/benazepril, baclofen, Lasix, gabapentin, hydralazine, Ernest, NovoLog insulin, metformin, simvastatin, MS Contin, temazepam. DISCHARGE FOLLOWUP AND INSTRUCTIONS 1. The patient is to follow up with his own primary care doctor through her HMO insurance 1-2 weeks after discharge. 2. The patient stated that he already has an appointment with his communications project manager as outpatient 1 day after the discharge, so he said he will follow up with podiatry as scheduled. The total time spent on this patient, still making discharge plan for this patient, communicating with the patient at bedside, explaining to him in detail about the followup appointments and instructions, and communicating with the nursing staff on the floor took more than 60 minutes. Dictated By: CECILIA MAYNARD MD, KP/ANASTASIYA Conf#: [id number] DID#: [id number] MTDD
== END 2016-12-29 13:42 | disposition home or self-care (01) | DRG 638 ==
LOC: E/R 08:39 → PP2 10:24
PROVIDERS: ADMIT Family Medicine; ATTEND Internal Medicine
DX: E11.621 Type 2 diabetes mellitus with foot ulcer (principal); L03.116 Cellulitis of left lower limb; L97.521 Non-pressure chronic ulcer of other part of left foot limited to breakdown of skin; E11.42 Type 2 diabetes mellitus with diabetic polyneuropathy; E11.51 Type 2 diabetes mellitus with diabetic peripheral angiopathy without gangrene; Z68.41 Body mass index [BMI] 40.0-44.9, adult; E11.628 Type 2 diabetes mellitus with other skin complications; E66.01 Morbid (severe) obesity due to excess calories; E78.5 Hyperlipidemia, unspecified; I10 Essential (primary) hypertension; R60.0 Localized edema; S80.822A Blister (nonthermal), left lower leg, initial encounter; L08.9 Local infection of the skin and subcutaneous tissue, unspecified; X58.XXXA Exposure to other specified factors, initial encounter; Z89.421 Acquired absence of other right toe(s); Z89.422 Acquired absence of other left toe(s); Z79.4 Long term (current) use of insulin
CPT/HCPCS: 36415; 73718; 80048; 80053; 82962; 83690; 85025; 85651; 86140; 87040; 96372; 96374; 96375; J0743; J1650; J1815; J1940; J2185; J2405

== ENCOUNTER 2019-01-26 10:46 | Inpatient (IN) | payer OTHER ==
[~2019-01-26] VITALS: Ht 200.7 cm; Wt 147.0 kg
[~2019-01-26 10:46] MED LIST changes: +AMLO1CAP12 PO; +BACL10TA PO; +CINN500C9 PO; +FURO40TA4 PO; +GABA-526 PO; +HYDR-3672 PO; +HYDR-3980 PO; +INSU100V3 IJ; +METF100010 PO; +MORP30TA89 PO; +NOVO3I SC; +SIMV40TA2 PO; +TEMA30CA PO
[2019-01-26] MEDS ORDERED: SODIUM CHLORIDE 0.9% 1L BAG IV* STA (11:08)
[2019-01-26] MEDS ORDERED: morphine 4 MG/ML VIAL IV STA (11:08)
[2019-01-26] MEDS ORDERED: AZTREONAM 1 GM/NS (PMX) 50 ML IVPB STA (11:08)
[2019-01-26] MEDS ORDERED: ONDANSETRON 4 MG INJ IV STA (11:08)
[2019-01-26] MEDS ORDERED: LINEZOLID 600 MG/300 ML (PMX) 300 ML IVPB STA (11:08)
[2019-01-26] MEDS ORDERED: INSU500I SQ (12:00)
[2019-01-26] MEDS ORDERED: FINA5TAB4 PO (12:00)
[2019-01-26] MEDS ORDERED: ATOR20TA38 PO (12:00)
[2019-01-26] MEDS ORDERED: MTF1000T PO (12:00)
[2019-01-26] MEDS ORDERED: HYDR-3609 ORAL (12:00)
[2019-01-26] MEDS ORDERED: EMPA10TA PO (12:00)
[2019-01-26] MEDS ORDERED: LIRA0.6P2 SQ (12:00)
[2019-01-26] MEDS ORDERED: CHOL100062 PO (12:00)
[2019-01-26] MEDS ORDERED: INSU500I SC (12:00)
[2019-01-26] MEDS ORDERED: TAMS-14 PO (12:00)
[2019-01-26] MEDS ORDERED: HYDROmorphONE 2 MG/ML SYG IV STA (13:25)
[2019-01-26] MEDS ORDERED: ACETAMINOPHEN 325 MG TAB PO PRN ×2 (13:30→16:30)
[2019-01-26] MEDS ORDERED: ONDANSETRON 4 MG INJ IV PRN (13:30)
--- NOTE | 2019-01-26 15:11 | ERD ---
ER Documentation Chief Complaint Chief Complaint right lef redness x 3 days, black wound sole with discharge HPI Patient is a 48-year-old male with diabetes and hypertension who presents with left leg redness. The patient said that 2 weeks ago he started with a black dot to the bottom of the left foot. It has gotten worse and now he has redness of the foot and up the left leg. It is been worsening and increasing over the past 24 to 48 hours. He denies fevers. Upon review of old medical records this is the patient's third visit to the ER since 2017. Review of the emergency department information exchange system shows visits to 2 separate emergency departments for a total of 3 visits over the past 1 year. His primary doctor is Dr. Daigle. ROS All systems reviewed and are negative except as per history of present illness. Medications Home Meds Reported Medications Insulin Regular, Human (Humulin R U-500 Kwikpen) 500 Unit/1 Ml Insuln.pen, 60 UNIT SQ QHS 01/26/19 Insulin Regular, Human (Humulin R U-500 Kwikpen) 500 Unit/1 Ml Insuln.pen, 40 U NIT SC AM AND NOON 01/26/19 Liraglutide (Victoza 3-Greg) 0.6 Mg/0.1 Ml Pen.injctr, 1.5 MG SQ DAILY, SYR 01/26/19 Hydrocodone/Acetaminophen (Hydrocodone-Acetamin 10-325 mg) 1 Each Tablet, 1 TAB ORAL Q6 PRN for PAIN LEVEL 7-10 01/26/19 Empagliflozin (Jardiance) 10 Mg Tablet, 10 MG PO DAILY, TAB 01/26/19 Finasteride* (Finasteride*) 5 Mg Tablet, 5 MG PO DAILY, TAB 01/26/19 Tamsulosin Hcl* (Flomax*) 0.4 Mg Cap.er.24h, 0.4 MG PO HS, CAP 01/26/19 Atorvastatin Calcium* (Atorvastatin Calcium*) 20 Mg Tablet, 20 MG PO QHS, #30 TAB 01/26/19 Cholecalciferol* (Vitamin D3*) 1,000 Unit Tablet, 5000 UNIT PO DAILY, TAB 01/26/19 Metformin* (Glucophage*) 1,000 Mg Tablet, 1000 MG PO WITH BREAKFAST DINNE, #30 TAB 01/26/19 Hydrocodone/Acetaminophen ([place] 10-325 Tablet) 1 Each Tablet, 1 TAB PO Q6, TAB 12/26/16 Amlodipine Besylate/Benazepril (Amlodipine-Benazepril 10-20 mg) 1 Each Capsule, 1 CAP PO DAILY, CAP 12/26/16 Hydralazine Hcl* (Hydralazine Hcl*) 50 Mg Tab, 50 MG PO BID, #60 TAB 12/26/16 Gabapentin* (Gabapentin*) 600 Mg Tablet, 600 MG PO TID, #90 TAB 12/26/16 Discontinued Reported Medications Insulin Regular, Human (Humulin R) 100 Unit/1 Ml Vial, 8 UNIT IJ BID WITH MEALS, VIAL 12/26/16 Insulin Aspart* (Novolog Insulin Pen*) 100 Unit/Ml Soln, 45 UNIT SC AC MEALS AND BEDTIME, EA 12/26/16 Baclofen* (Baclofen*) 10 Mg Tablet, 10 MG PO Q8, TAB 12/26/16 Morphine Sulfate* (Ms Contin*) 30 Mg Tablet.sa, 30 MG PO Q8, TAB.SA 12/26/16 Temazepam* (Temazepam*) 30 Mg Capsule, 30 MG PO HS PRN for INSOMNIA, CAP 12/26/16 Furosemide* (Furosemide*) 40 Mg Tablet, 40 MG PO DAILY, TAB 12/26/16 Metformin Hcl* (Metformin Hcl*) 1,000 Mg Tablet, 1000 MG PO WITH BREAKFAST DINNE, #30 TAB 12/26/16 Simvastatin* (Zocor*) 40 Mg Tablet, 40 MG PO QHS, #30 TAB 12/26/16 Cinnamon Bark (Cinnamon) 500 Mg Capsule, 2000 MG PO DAILY, CAP 12/26/16 Discontinued Scripts Sulfamethoxazole/Trimethoprim* (Bactrim Ds* Tablet) 1 Each Tablet, 1 TAB PO BID for left foot cellulitis/wound, #14 TAB Prov:CECILIA MAYNARD MD 12/29/16 Allergies Allergies: Coded Allergies: vancomycin (Verified Allergy, Severe, RED MAN SYNDROME, 01/26/19) Penicillins (Verified Allergy, Unknown, 01/26/19) ciprofloxacin (Verified Allergy, Unknown, 01/26/19) metronidazole (Verified Allergy, Unknown, 01/26/19) oxycodone (Verified Allergy, Unknown, 01/26/19) PMhx/Soc History of Surgery: Yes (left shoulder sx, back sx, right foot all 5 toes amp,lt 2nd toe mabel) Anesthesia Reaction: No Hx Neurological Disorder: No Hx Respiratory Disorders: No Hx Cardiac Disorders: Yes (HTN, high cholesterol) Hx Psychiatric Problems: No Hx Miscellaneous Medical Probl: Yes (chronic pain ) Hx Alcohol Use: No Hx Substance Use: No Hx Tobacco Use: No Smoking Status: Never smoker FmHx Family History: diabetes Physical Exam Vitals Vital Signs Date Temp Pulse Resp B/P (MAP) Pulse Ox O2 O2 Flow FiO2 Time Delivery Rate 01/26/19 98.1 95 18 109/67 99 10:52 (81) Physical Exam Const: No acute distress Head: Atraumatic Eyes: Normal Conjunctiva ENT: Normal External Ears, Nose and Mouth. Neck: Full range of motion. No meningismus. Resp: Clear to auscultation bilaterally Cardio: Regular rate and rhythm, no murmurs Abd: Soft, non tender, non distended. Normal bowel sounds Skin: Wound to the base of the left foot with surrounding erythema and drainage, redness of the left leg just below the knee consistent with cellulitis Back: No midline or flank tenderness Ext: No cyanosis, or edema Neur: Awake and alert Psych: Normal Mood and Affect Result Diagram: 01/26/19 1129 01/26/19 1129 Results 24 hrs Laboratory Tests Test 01/26/19 11:29 01/26/19 11:30 01/26/19 14:28 White Blood Count 13.6 10^3/ul Red Blood Count 6.01 10^6/ul Hemoglobin 15.2 g/dl Hematocrit 48.1 % Mean Corpuscular Volume 80.0 fl Mean Corpuscular Hemoglobin 25.3 pg Mean Corpuscular 31.6 g/dl Hemoglobin Concent Red Cell Distribution Width 14.1 % Platelet Count 328 10^3/UL Mean Platelet Volume 10.2 fl Immature Granulocytes % 0.700 % Neutrophils % 74.8 % Lymphocytes % 16.3 % Monocytes % 7.7 % Eosinophils % 0.2 % Basophils % 0.3 % Nucleated Red Blood Cells % 0.0 /100WBC Immature Granulocytes # 0.100 10^3/ul Neutrophils # 10.2 10^3/ul Lymphocytes # 2.2 10^3/ul Monocytes # 1.1 10^3/ul Eosinophils # 0.0 10^3/ul Basophils # 0.0 10^3/ul Nucleated Red Blood Cells # 0.0 10^3/ul Prothrombin Time 12.9 Sec Prothrombin Time Ratio 1.0 INR International 0.96 Normalized Ratio Activated Partial Thromboplast 30.2 Sec Time Sodium Level 142 mmol/L Potassium Level 4.0 mmol/L Chloride Level 108 mmol/L Carbon Dioxide Level 20 mmol/L Anion Gap 14 Blood Urea Nitrogen 24 mg/dl Creatinine 0.90 mg/dl Est Glomerular Filtrat > 60 mL/min Rate mL/min Glucose Level 210 mg/dl Calcium Level 9.5 mg/dl Total Bilirubin 0.5 mg/dl Direct Bilirubin 0.00 mg/dl Indirect Bilirubin 0.5 mg/dl Aspartate Amino Transf (AST/SGOT) 15 IU/L Alanine 22 IU/L Aminotransferase (ALT/SGPT) Alkaline Phosphatase 127 IU/L Troponin I < 0.012 ng/ml Total Protein 7.9 g/dl Albumin 4.2 g/dl Globulin 3.70 g/dl Albumin/Globulin Ratio 1.13 Urine Color YELLOW Urine Clarity SLIGHTLY CLOUDY Urine pH 5.0 Urine Specific [place] 1.040 Urine Ketones TRACE mg/dL Urine Nitrite NEGATIVE mg/dL Urine Bilirubin NEGATIVE mg/dL Urine Urobilinogen NEGATIVE mg/dL Urine Leukocyte Esterase NEGATIVE Francesca/ul Urine Microscopic RBC 0 /HPF Urine Microscopic WBC 0 /HPF Urine Hemoglobin NEGATIVE mg/dL Urine Glucose 3+ mg/dL Urine Total Protein 1+ mg/dl Lactic Acid Level 1.6 mmol/L Current Medications Medications Dose Sig/Indira Start Time Status Last (Trade) Ordered Route PRN Stop Time Admin Dose Reason Admin Morphine 4 mg ONCE STAT 01/26/19 DC 01/26/19 Sulfate IV 11:08 01/26/19 12:05 (morphine) 11:10 Ondansetron 4 mg ONCE STAT 01/26/19 DC 01/26/19 HCl (Zofran IV 11:08 01/26/19 12:05 Inj) 11:10 Sodium 2,810 ml BOLUS OVER 2 01/26/19 DC 01/26/19 Chloride HOURS STAT 11:08 01/26/19 12:03 (NS) IV* 11:10 Aztreonam 50 ml @ ONCE STAT 01/26/19 DC 01/26/19 100 mls/hr IVPB 11:08 01/26/19 12:10 11:37 Linezolid 300 ml @ ONCE STAT 01/26/19 DC 01/26/19 300 mls/hr IVPB 11:08 01/26/19 13:00 12:07 1 mg ONCE STAT 01/26/19 DC 01/26/19 Hydromorphone IV 13:25 01/26/19 13:34 HCl 13:26 (Dilaudid) Ondansetron 4 mg BRIDGE ORDER 01/26/19 HCl (Zofran PRN IV 13:30 01/27/19 Inj) NAUSEA/VOMITI 13:29 NG 650 mg ER BRIDGE 01/26/19 Acetaminophen PRN PO 13:30 01/27/19 (Tylenol .MILD PAIN 13:29 Tab) 1-3 OR TEMP Procedures/MDM Patient is a 48-year-old male with diabetes and hypertension who presents with left foot wound with cellulitis. The patient was given broad-spectrum antibiotics with aztreonam and Zyvox as he has multiple allergies to other antibiotics. The patient has no sign of sepsis at this time. The patient will be admitted to the care of Dr. Sanchez as he has regal insurance. The patient will be admitted to a medical surgical bed. Departure Diagnosis: Primary Impression: Cellulitis Site of cellulitis: extremity Site of cellulitis of extremity: lower extremity Laterality: left Qualified Codes: L03.116 - Cellulitis of left lower limb Additional Impression: Diabetic foot ulcer Diabetic foot ulcer location: unspecified part of foot Diabetes mellitus type: other specified (including DRAGAN) Laterality: left Non-pressure ulcer stage: unspecified non-pressure ulcer stage Qualified Codes: E13.621 - Other specified diabetes mellitus with foot ulcer; L97.529 - Non-pressure chronic ulcer of other part of left foot with unspecified severity Condition: GHADA Milton MD Jan 26, 2019 15:11
--- NOTE | 2019-01-26 16:12 | HP ---
Date/Time of Note Date/Time of Note DATE: 01/26/19 TIME: 15:54 Assessment/Plan VTE Prophylaxis SCD applied (from Nsg): No SCD contraindicated: other (cellulitis left leg) Pharmacological prophylaxis: LMWH Lines/Catheters IV Catheter Type (from Nrsg): Saline Lock Assessment/Plan Assessment/Plan 1. 48yo man with h/o lap/band surgery and 200# weight loss, type 2 diabetes and severe peripheral neuropathy, and hypertension who presents with three days of progressive cellulitis of the left lower leg secondary to apparent perforating injury of the left sole. 2. Multiple antibiotic allergies, with previous red-person syndrome 3. Diabetic nephropathy 4. Inadequately controlled diabetes * Admit to Med/Surg inpatient care * Start on Lantus 24u at bedtime * Accuchecks qAC and qHS * Diabetic diet * Humalog insulin scheduled before meals (20u) * HgbA1c and TSH pending * Continue aztreonam and linezolide, started in ER; ID consult will be called * Full-code * LMWH for DVT prophylaxis * Diabetic education * Famotidine 20mg PO BID for GI protection * Disposition: home in the care of his children, once cellulitis is stably treated Mecca Sanchez MD PhD [facility] [phone] Result Diagram: 01/26/19 1129 01/26/19 1129 Results 24hrs Laboratory Tests Test 01/26/19 11:29 01/26/19 11:30 01/26/19 14:28 White Blood Count 13.6 #H Red Blood Count 6.01 # Hemoglobin 15.2 # Hematocrit 48.1 # Mean Corpuscular Volume 80.0 L Mean Corpuscular Hemoglobin 25.3 L Mean Corpuscular 31.6 L Hemoglobin Concent Red Cell Distribution Width 14.1 Platelet Count 328 # Mean Platelet Volume 10.2 Immature Granulocytes % 0.700 H Neutrophils % 74.8 Lymphocytes % 16.3 Monocytes % 7.7 Eosinophils % 0.2 Basophils % 0.3 Nucleated Red Blood Cells % 0.0 Immature Granulocytes # 0.100 H Neutrophils # 10.2 H Lymphocytes # 2.2 Monocytes # 1.1 H Eosinophils # 0.0 Basophils # 0.0 Nucleated Red Blood Cells # 0.0 Prothrombin Time 12.9 Prothrombin Time Ratio 1.0 INR International 0.96 Normalized Ratio Activated Partial Thromboplast 30.2 Time Sodium Level 142 Potassium Level 4.0 Chloride Level 108 Carbon Dioxide Level 20 L Anion Gap 14 H Blood Urea Nitrogen 24 H Creatinine 0.90 Est Glomerular Filtrat > 60 Rate mL/min Glucose Level 210 Calcium Level 9.5 Total Bilirubin 0.5 Direct Bilirubin 0.00 Indirect Bilirubin 0.5 Aspartate Amino 15 Transf (AST/SGOT) Alanine 22 Aminotransferase (ALT/SGPT) Alkaline Phosphatase 127 H Troponin I < 0.012 Total Protein 7.9 Albumin 4.2 Globulin 3.70 H Albumin/Globulin Ratio 1.13 Urine Color YELLOW Urine Clarity SLIGHTLY CLOUDY A Urine pH 5.0 Urine Specific [place] 1.040 H Urine Ketones TRACE A Urine Nitrite NEGATIVE Urine Bilirubin NEGATIVE Urine Urobilinogen NEGATIVE Urine Leukocyte Esterase NEGATIVE Urine Microscopic RBC 0 Urine Microscopic WBC 0 Urine Hemoglobin NEGATIVE Urine Glucose 3+ H Urine Total Protein 1+ H Lactic Acid Level 1.6 HPI/ROS Admit Date/Time Admit Date/Time 01/26/2019 Hx of Present Illness CC: Painful left calf and foot HPI: Mr. Aaron is a 48-year-old man with a history of inadequately controlled type 2 diabetes and previous toe amputations who developed pain in the left foot three days ago that progressed to swelling and pain extending up to the left knee. He was accompanied by his 15yo daughter. Two weeks ago he noticed a black dot on the bottom of the left foot, at a place just below the previous amputation of his left second toe. He has been trying to walk every day, despite having severe neuropathy in his feet, and felt that his shoes likely had exacerbated a sore on the middle of the left sole. Two days ago he developed redness of the foot extending up the left leg. No fever, headache, nausea, or lightheadedness. He had two previous ER visits in 2017 for cellulitis. Medical history: 1. Lap band surgery 2. Diabetes as above. Blood sugars were in the 400s until recently, but he tests sugars 3x per day and has been aiming for better control. Last eye exam was two years ago. Also had a treadmill test two years ago, which he said was normal. 3. Hypertension 4. Diabetic neuropathy 5. Multiple antibiotic allergies (penicillin, ciprofloxacin, metronidazole, and vancomycin), with a history of red-person syndrome ROS As above. PMH/Family/Social Past Medical History Medical History: hypertension Medications Current Medications Ondansetron HCl (Zofran Inj) 4 mg BRIDGE ORDER PRN IV NAUSEA/VOMITING; Start 01/26/19 at 13:30; Stop 01/27/19 at 13:29 Acetaminophen (Tylenol Tab) 650 mg ER BRIDGE PRN PO .MILD PAIN 1-3 OR TEMP; Start 01/26/19 at 13:30; Stop 01/27/19 at 13:29 Coded Allergies: vancomycin (Verified Allergy, Severe, RED MAN SYNDROME, 01/26/19) Penicillins (Verified Allergy, Unknown, 01/26/19) ciprofloxacin (Verified Allergy, Unknown, 01/26/19) metronidazole (Verified Allergy, Unknown, 01/26/19) oxycodone (Verified Allergy, Unknown, 01/26/19) Past Surgical History Past Surgical Hx: other Family History Significant Family History: diabetes (Father, mother, and sister), other (Father recently in his 80s) Social History Used to work for [employer]. Single father, with three children (15 to 28). Not currently able to work. Smoking Status: Never smoker Exam/Review of Systems Vital Signs Vitals Vital Signs Date Temp Pulse Resp B/P (MAP) Pulse Ox O2 O2 Flow FiO2 Time Delivery Rate 01/26/19 98.4 80 16 116/68 95 Room Air 15:45 (84) Exam Exam Gen: Cheerful, cooperative, no apparent discomfort at rest HEENT: PERRL, EOMI, moist oral mucosa, no thrush CVS: Reg rhythm, normal rate, no murmur or JVD Chest: Clear bilat Abd: Soft, non-tender, no rebound or guarding : No CVA tenderness MSk: No arthritis Skin: Black streak on the bottom of the left foot, with circumferential erythema of the left calf and moderate tenderness extending to the knee. No lymphangitis evident. Neuro: Alert, oriented x 3, cranial nerves intact. Motor 5/5 bilaterally. Severe loss of sensation in both feet. Equivocal Babinski. 2+ symmetric patellar reflexes. Intact speech and memory, with appropriate affect LAUREN SANCHEZ M.D. Jan 26, 2019 16:05
[2019-01-26] MEDS ORDERED: NON-FORMULARY/PATIENT OWN MED (Amlodipine Besylate/Benazepril (Amlodipine-Benazepril 10-20 PO SCH (16:30)
[2019-01-26] MEDS ORDERED: LIRAGLUTIDE SQ SCH (16:30)
[2019-01-26] MEDS ORDERED: NACL 0.9% 3 ML SYG IV SCH (16:30)
[2019-01-26] MEDS: FINASTERIDE 5 MG TAB PO SCH (16:30)
[2019-01-26] MEDS ORDERED: DOCUSATE SODIUM 100 MG CAP PO PRN (16:30)
[2019-01-26] MEDS: CHOLECALCIFEROL 1,000 UNIT TAB PO SCH (16:30)
[2019-01-26 16:32] VITALS: BP 139/77; PULSE 85; RESP 18
[2019-01-26 16:50] VITALS: Ht 200.7 cm; Wt 147.0 kg
[2019-01-26] MEDS ORDERED: GLUCOSE GEL 15 GRAM TUBE BUCCAL PRN (17:00)
[2019-01-26] MEDS: AMLODIPINE 10 MG TAB PO SCH (17:00)
[2019-01-26] MEDS: BENAZEPRIL 20 MG TAB PO SCH (17:00)
[2019-01-26] MEDS ORDERED: GLUCOSE GEL 15 GRAM TUBE PO PRN ×2 (17:00)
[2019-01-26] MEDS ORDERED: GLUCAGON 1 MG INJ IM PRN (17:00)
[2019-01-26] MEDS ORDERED: DEXTROSE 50% 50 ML SYRINGE IV PRN ×2 (17:00)
[2019-01-26] MEDS: TAMSULOSIN (SR) 0.4 MG CAP PO SCH ×2 (17:27→20:44)
[2019-01-26] MEDS: ACCU-CHEK XX SCH ×2 (17:30→20:45)
[2019-01-26] MEDS: metFORMIN 500 MG TAB PO SCH (17:59)
[2019-01-26] MEDS: HYDROCODONE/APAP (10/325) TAB PO PRN (17:59)
[2019-01-26] MEDS: ENOXAPARIN 40 MG/0.4 ML SYG SC SCH (18:02)
[2019-01-26] MEDS: EMPAGLIFLOZIN 10 MG TABLET PO SCH (19:42)
[2019-01-26 20:00] VITALS: BP 115/61; PULSE 70; RESP 18
[2019-01-26] MEDS: KETOROLAC 15 MG INJ IV PRN (20:43)
[2019-01-26] MEDS: AZTREONAM 2 GM in DEXTROSE 5% 100 ML IVPB SCH (20:43)
[2019-01-26] MEDS: GABAPENTIN 300 MG CAP PO SCH (20:44)
[2019-01-26] MEDS: ATORVASTATIN 20 MG TAB PO SCH (20:45)
[2019-01-26] MEDS: LINEZOLID 600 MG/300 ML (PMX) 300 ML IVPB SCH (22:09)
[2019-01-26] MEDS: ONDANSETRON 4 MG TAB PO PRN (23:17)
[2019-01-27 02:00] VITALS: BP 111/63; PULSE 81; RESP 20
[2019-01-27] MEDS: KETOROLAC 15 MG INJ IV PRN ×3 (04:49→19:26)
[2019-01-27] MEDS: ACCU-CHEK XX SCH ×4 (07:00→21:00)
[2019-01-27 08:18] VITALS: BP 119/74; PULSE 84; RESP 18
[2019-01-27] MEDS: metFORMIN 500 MG TAB PO SCH ×2 (08:21→18:03)
[2019-01-27] MEDS: BENAZEPRIL 20 MG TAB PO SCH (08:21)
[2019-01-27] MEDS: EMPAGLIFLOZIN 10 MG TABLET PO SCH (08:22)
[2019-01-27] MEDS: AMLODIPINE 10 MG TAB PO SCH (08:22)
[2019-01-27] MEDS: CHOLECALCIFEROL 1,000 UNIT TAB PO SCH (08:23)
[2019-01-27] MEDS: FINASTERIDE 5 MG TAB PO SCH (08:23)
[2019-01-27] MEDS: GABAPENTIN 300 MG CAP PO SCH ×3 (08:23→21:29)
[2019-01-27] MEDS: ENOXAPARIN 40 MG/0.4 ML SYG SC SCH (08:24)
[2019-01-27] MEDS: ONDANSETRON 4 MG TAB PO PRN (08:29)
[2019-01-27] MEDS: LINEZOLID 600 MG/300 ML (PMX) 300 ML IVPB SCH ×2 (08:30→22:46)
[2019-01-27] MEDS: AZTREONAM 2 GM in DEXTROSE 5% 100 ML IVPB SCH (08:30)
[2019-01-27] MEDS: VICTOZA 18 MG/3 ML SC SCH (08:31)
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
--- NOTE | 2019-01-27 14:46 | CONS ---
DATE OF ADMISSION: 01/26/2019 DATE OF CONSULTATION: 01/27/2019 TYPE OF CONSULTATION: Infectious disease. REASON FOR CONSULTATION: Antibiotic management. HISTORY OF PRESENT ILLNESS: Cecilio Aaron is a 48-year-old male who comes in with right leg r edness for 3 days and a black wound on his sole. His past problems include: 1. Diabetes mellitus. 2. Hypertension. He presents with left leg redness. He notes that 2 weeks ago he started to have a black dot at the b ottom of his left foot which has gotten worse. Now, his redness is up to the foot and up the left le g which has been worse over the last 24 to 48 hours. PAST MEDICAL HISTORY AND PAST SURGICAL HISTORY: He had left shoulder surgery, back surgery. All 5 t oes on the right foot were amputated. Second toe on the left foot was amputated. He has hypertensio n, hypercholesterolemia and chronic pain. ALLERGIES: HE IS ALLERGIC TO: 1. VANCOMYCIN. 4. PENICILLIN. 5. CIPRO. 6. METRONIDAZOLE. 7. OXYCODONE. PAST MEDICAL HISTORY: As outlined. FAMILY HISTORY: Positive for diabetes. SOCIAL HISTORY: Does not smoke, drink or abuse drugs. ALLERGIES: NONE TO SULFA OR FOODS. MEDICATIONS: Per chart. REVIEW OF SYSTEMS: As per HPI. PHYSICAL EXAMINATION: GENERAL: The patient is well-developed, well-nourished male, awake, responsive, in no acute distress . VITAL SIGNS: Stable. He is afebrile. SKIN: Without generalized rash. HEENT: Within normal limits. NECK: Supple. LYMPH NODES: None palpable. CHEST: Decreased breath sounds at the bases. HEART: Without murmur or gallop. ABDOMEN: Soft, nontender, without organosplenomegaly or masses. EXTREMITIES: He has a wound at the base of the left foot with surrounding erythema and drainage, red ness of the left leg which extends just below the knee consistent with cellulitis. RECTAL AND GENITAL: Deferred. NEUROLOGIC: No focal neurological abnormality. HOSPITAL COURSE: White count is 13.6, H and H 15.2 and 48.1, platelet count 328,000. BUN and creati nine is 24/0.9, platelet count 210,000. The patient was started on linezolid and aztreonam because H Selvin IS ALLERGIC TO PENICILLIN AND TO VANCOMYCIN. White count today is 10.2. We will continue him on t his current regimen, to which I concur. I will dictate my findings to the hospitalist, Dr. Laura santiago om the [facility]. Dictated By: ARTURO DIA MD, JD/ANASTASIYA Conf#: [id number] DID#: [id number] CC: LAUREN HERNANDEZ MD;*EndCC*
[2019-01-27 15:08] VITALS: BP 141/70; PULSE 82; RESP 16
[2019-01-27] MEDS: CLINDAMYCIN 600 MG/D5W (PMX) 50 ML IVPB SCH (17:06)
[2019-01-27] MEDS: ONDANSETRON 4 MG INJ IV PRN (19:26)
[2019-01-27 19:41] VITALS: BP 152/78; PULSE 68; RESP 18
[2019-01-27] MEDS: ATORVASTATIN 20 MG TAB PO SCH (21:28)
[2019-01-27] MEDS: AZTREONAM 2 GM in SOD CHLORIDE 0.9% 100 ML IVPB SCH (21:28)
[2019-01-27] MEDS: TAMSULOSIN (SR) 0.4 MG CAP PO SCH (21:29)
[2019-01-27] MEDS: HYDROCODONE/APAP (10/325) TAB PO PRN (21:29)
[2019-01-28] MEDS: CLINDAMYCIN 600 MG/D5W (PMX) 50 ML IVPB SCH ×3 (00:13→14:01)
[2019-01-28 01:05] VITALS: BP 125/65; PULSE 82; RESP 18
[2019-01-28] MEDS: HYDROCODONE/APAP (10/325) TAB PO PRN (05:00)
[2019-01-28] MEDS: KETOROLAC 15 MG INJ IV PRN ×2 (05:00→14:17)
[2019-01-28] MEDS: ACCU-CHEK XX SCH (07:00)
[2019-01-28 07:27] VITALS: BP 101/58; PULSE 63; RESP 16
[2019-01-28 08:10] VITALS: BP 152/78; PULSE 79; RESP 16
[2019-01-28] MEDS: LINEZOLID 600 MG/300 ML (PMX) 300 ML IVPB SCH (08:22)
[2019-01-28] MEDS: GABAPENTIN 300 MG CAP PO SCH ×3 (08:22→20:38)
[2019-01-28] MEDS: FINASTERIDE 5 MG TAB PO SCH (08:22)
[2019-01-28] MEDS: AZTREONAM 2 GM in SOD CHLORIDE 0.9% 100 ML IVPB SCH (08:22)
[2019-01-28] MEDS: AMLODIPINE 10 MG TAB PO SCH (08:23)
[2019-01-28] MEDS: BENAZEPRIL 20 MG TAB PO SCH (08:23)
[2019-01-28] MEDS: VICTOZA 18 MG/3 ML SC SCH (08:24)
[2019-01-28] MEDS: metFORMIN 500 MG TAB PO SCH ×2 (08:24→17:45)
[2019-01-28] MEDS: CHOLECALCIFEROL 1,000 UNIT TAB PO SCH (08:24)
[2019-01-28] MEDS: EMPAGLIFLOZIN 10 MG TABLET PO SCH (08:25)
[2019-01-28] MEDS: ENOXAPARIN 40 MG/0.4 ML SYG SC SCH (08:26)
[2019-01-28] MEDS ORDERED: LIDOCAINE 1% (MPF) 5 ML VIAL SC ONE (13:00)
[2019-01-28] MEDS ORDERED: AZTR2VIA2 IJ (13:01)
[2019-01-28] MEDS ORDERED: LINE600I9 IV (13:01)
--- NOTE | 2019-01-28 13:03 | PDOCDIS ---
Discharge Instructions CONDITION [id number] Patient Condition: [id number] Good HOME CARE INSTRUCTIONS: [id number] Diet Instructions: [id number] Skalc0Ga Activity Restrictions: Kpmbr1y Slowly Increase Activity FOLLOW UP/APPOINTMENTS Follow-up Plan pcp [address] Schrader 1 week HELIO JC MD Jan 28, 2019 13:03
--- NOTE | 2019-01-28 13:32 | CONS ---
Assessment/Plan Assessment/Plan Hospital Course (Demo Recall) Patient is alert feels good just had a MRI of the foot he is in no distress no fevers. Microbiology: Wound culture growing staph aureus preliminary MRI of the foot revealed no evidence of abscess or osteomyelitis Antimicrobials: Aztreonam, clindamycin Allergies: Penicillin, Cipro, Flagyl, Vanco Physical examination: This is well-developed obese middle-aged man who is alert in no distress. Head atraumatic normocephalic sclera nonicteric neck is supple chest rise symmetrical breath sounds clear heart S1-S2 abdomen soft bowel sounds present extremities with left lower extremity edema and erythema below knee Assessment: 1. Left lower extremity cellulitis 2. Uncontrolled diabetes 3. Diabetic neuropathy Plan: Patient remains stable, continue present care antibiotics, await for final cultures Consultation Date/Type/Reason Admit Date/Time Jan 26, 2019 at 13:31 Initial Consult Date Type of Consult id Date/Time of Note DATE: 01/28/19 TIME: 13:32 Exam/Review of Systems Exam Vitals Vital Signs Date Temp Pulse Resp B/P (MAP) Pulse Ox O2 O2 Flow FiO2 Time Delivery Rate 01/28/19 98.7 79 16 152/78 95 08:10 (102) 01/26/19 Room Air 15:45 Intake and Output 01/27/19 01/27/19 01/28/19 1515:00 23:00 07:00 IntakeIntake Total 1360 ml 670 ml 400 ml BalanceBalance 1360 ml 670 ml 400 ml Results Result Diagram: 01/27/19 0431 01/27/19 0431 Results 24hrs Laboratory Tests Test 01/27/19 18:02 01/27/19 21:38 01/28/19 07:54 01/28/19 12:09 Bedside Glucose 147 223 H 141 197 Medications Medication Current Medications Atorvastatin Calcium (Lipitor) 20 mg QHS PO Last administered on 01/27/19at 21:28; Admin Dose 20 MG; Start 01/26/19 at 21:00 Cholecalciferol (Vitamin D) 5,000 unit DAILY PO Last administered on 01/28/19at 08:24; Admin Dose 5,000 UNIT; Start 01/26/19 at 16:30 Empaglifozin (Jardiance) 10 mg DAILY PO Last administered on 01/28/19at 08:25; Admin Dose 10 MG; Start 01/26/19 at 16:30 Finasteride (Proscar) 5 mg DAILY PO Last administered on 01/28/19 08:22; Admin Dose 5 MG; Start 01/26/19 at 16:30 Gabapentin (Neurontin) 600 mg TID PO Last administered on 01/28/19 13:04; Admin Dose 600 MG; Start 01/26/19 at 21:00 Hydralazine HCl (Apresoline) 50 mg BID PO Last administered on 01/28/19 08:24; Admin Dose 50 MG; Start 01/26/19 at 21:00 Acetaminophen/ Hydrocodone Bitart (Joanna (10)) 1 tab Q6 PRN PO PAIN LEVEL 7-10 Last administered on 01/28/19 05:00; Admin Dose 1 TAB; Start 01/26/19 at 16:30 Metformin HCl (Glucophage) 1,000 mg WITH BREAKFAST DINNE PO Last administered on 01/28/19 08:24; Admin Dose 1,000 MG; Start 01/26/19 at 18:00 Tamsulosin HCl (Flomax) 0.4 mg HS PO Last administered on 01/27/19 21:29; Admin Dose 0.4 MG; Start 01/26/19 at 21:00 Linezolid 300 ml @ 300 mls/hr Q12 IVPB Last administered on 01/28/19 08:22; Admin Dose 300 MLS/HR; Start 01/26/19 at 21:00 IV Flush (NS 3 ml) 3 ml PER PROTOCOL IV ; Start 01/26/19 at 16:30 Ondansetron HCl (Zofran Tab) 4 mg Q6H PRN PO NAUSEA/VOMITING Last administered on 01/27/19 08:29; Admin Dose 4 MG; Start 01/26/19 at 16:30 Acetaminophen (Tylenol Tab) 650 mg Q6H PRN PO .PAIN 1-3 OR TEMP; Start 01/26/19 at 16:30 Docusate Sodium (Colace) 100 mg Q12H PRN PO .CONSTIPATION; Start 01/26/19 at 16:30 Enoxaparin Sodium (Lovenox) 40 mg DAILY SC Last administered on 01/28/19 08:26; Admin Dose 40 MG; Start 01/26/19 at 16:30 Miscellaneous Information 1 ea NOTE XX ; Start 01/26/19 at 17:00 Glucose (Glutose) 15 gm Q15M PRN PO DECREASED GLUCOSE; Start 01/26/19 at 17:00 Glucose (Glutose) 22.5 gm Q15M PRN PO DECREASED GLUCOSE; Start 01/26/19 at 17:00 Dextrose (D50w Syringe) 25 ml Q15M PRN IV DECREASED GLUCOSE; Start 01/26/19 at 17:00 Dextrose (D50w Syringe) 50 ml Q15M PRN IV DECREASED GLUCOSE; Start 01/26/19 at 17:00 Glucagon (Glucagen) 1 mg Q15M PRN IM DECREASED GLUCOSE; Start 01/26/19 at 17:00 Glucose (Glutose) 15 gm Q15M PRN BUCCAL DECREASED GLUCOSE; Start 01/26/19 at 17:00 Amlodipine Besylate (Norvasc) 10 mg DAILY PO Last administered on 01/28/19at 08:23; Admin Dose 10 MG; Start 01/26/19 at 17:00 Benazepril HCl (Lotensin) 20 mg DAILY PO Last administered on 01/28/19at 08:23; Admin Dose 20 MG; Start 01/26/19 at 17:00 Ketorolac Tromethamine (Toradol) 15 mg Q6H PRN IV PAIN Last administered on 01/28/19 05:00; Admin Dose 15 MG; Start 01/26/19 at 20:00; Stop 01/29/19 at 19:59 Patient Own Medication 1 ea DAILY SC Last administered on 01/28/19at 08:24; Admin Dose 1 EA; Start 01/27/19 at 09:00 Aztreonam 2 gm/ Sodium Chloride 100 ml @ 100 mls/hr Q12 IVPB Last administered on 01/28/19at 08:22; Admin Dose 100 MLS/HR; Start 01/27/19 at 21:00 Clindamycin HCl/ Dextrose 50 ml @ 50 mls/hr Q8 IVPB Last administered on 01/28/19at 05:00; Admin Dose 50 MLS/HR; Start 01/27/19 at 15:00 Ondansetron HCl (Zofran Inj) 4 mg Q4H PRN IV NAUSEA AND/OR VOMITING Last administered on 01/27/19at 19:26; Admin Dose 4 MG; Start 01/27/19 at 19:30 Insulin Glargine (Lantus) 8 units DAILY@0800 SC ; Start 01/29/19 at 08:00 Insulin Aspart (Novolog Insulin Pen) NOVOLOG *MODERATE* ALGORITHM WITH MEALS BEDTIME SC ; Start 01/28/19 at 18:00 RIKI SANTANA NP Jan 28, 2019 13:32
[2019-01-28] MEDS: ONDANSETRON 4 MG INJ IV PRN (14:16)
[2019-01-28 15:11] VITALS: BP 134/78; PULSE 80; RESP 16
[2019-01-28] MEDS: INSULIN ASPART [NOVOLOG] 3 ML PEN SC SCH ×2 (17:47→20:37)
[2019-01-28 19:34] VITALS: BP 137/78; PULSE 87; RESP 18
--- NOTE | 2019-01-28 19:45 | DS ---
DATE OF ADMISSION: 01/26/2019 DATE OF DISCHARGE: DISCHARGE SUMMARY: 1. Left lower extremity cellulitis, improved with IV antibiotics. 2. Type 2 diabetes mellitus. 3. Diabetic neuropathy. 4. MULTIPLE ANTIBIOTIC ALLERGIES INCLUDING VANCOMYCIN, PENICILLIN AND FLAGYL. HOSPITAL COURSE: This is a 48-year-old male with type 2 diabetes mellitus who presented to the emergency room with a 3-day history of progressive cellulitis of the left lower leg secondary to apparent perforating injury involving the sole of the left foot. The patient was found to have a diabetic foot cellulitis extending all the way to the left knee. HE HAS MULTIPLE DRUG ALLERGIES INCLUDING VANCOMYCIN, PENICILLIN AND FLAGYL. He was placed on linezolid and aztreonam as well as clindamycin. He was seen in consultation by Dr. Dia. His cellulitis improved significantly during the hospitalization. White blood cell count was 10.2. He remained afebrile during the hospitalization. MRI of the left foot did not show any evidence of osteomyelitis or fluid collection. Preliminary cultures grew Staph aureus. The final culture result is pending but the periliminary result showed staph aureus.. The patient is in a stable condition for discharge home on IV linezolid. A PICC line placement was ordered. The case was discussed with Dr. Dia's physician floor covering printer assistant. He will follow up on the final culture results. The patient will follow up with PCP and Dr. Dia as an outpatient. Dictated By: HELIO OLEA/NTS Conf#: [id number] DID#: [id number] CC: LAUREN HERNANDEZ MD; ARTURO DIA MD;*EndCC* MTDD
[2019-01-28] MEDS: ATORVASTATIN 20 MG TAB PO SCH (20:38)
[2019-01-28] MEDS: TAMSULOSIN (SR) 0.4 MG CAP PO SCH (20:38)
[2019-01-29] MEDS ORDERED: INSULIN GLARGINE [LANTus] (100 UNITS/ML) SYG SC SCH (08:00)
== END 2019-01-28 21:00 | disposition home health service (06) | DRG 603 ==
LOC: E/R 10:46 → 2NE 13:31
PROVIDERS: ADMIT Internal Medicine; ATTEND Internal Medicine
DX: L03.116 Cellulitis of left lower limb (principal); E11.65 Type 2 diabetes mellitus with hyperglycemia; E11.42 Type 2 diabetes mellitus with diabetic polyneuropathy; E11.21 Type 2 diabetes mellitus with diabetic nephropathy; E13.621 Other specified diabetes mellitus with foot ulcer; L97.529 Non-pressure chronic ulcer of other part of left foot with unspecified severity
CPT/HCPCS: 36415; 73718; 80048; 80053; 81001; 82962; 83036; 83605; 84443; 84484; 85025; 85610; 85730; 87070; 87081; 87086; 93005; 96365; 96367; 96375; J1170; J1650; J1815; J1885; J2270; J2405; J7030